=== PATIENT | male | born 1935 | race Caucasian/White ===

== ENCOUNTER 2019-10-04 08:10 | Outpatient (CLI) | payer MEDICARE, SELFPAY ==
[2019-10-04 13:16] LABS: Alanine Aminotransferase 22 U/L (4-50); Alkaline Phosphatase 75 U/L (38-126); Aspartate Amino Transferase 26 U/L (17-59); Bilirubin,Total 0.4 mg/dL (0.2-1.3); Blood Urea Nitrogen 19 mg/dL (9-20); Calcium 9.1 mg/dL (8.4-10.2); Carbon Dioxide 29 mmol/L (22-30); Chloride 105 mmol/L (98-107); Cholesterol 196 mg/dL (0-200); Estimated Glomerular Filt Rate > 60; Glucose 99 mg/dL (75-110); HDL Direct 78 mg/dL; Potassium 4.1 mmol/L (3.4-5.0); Sodium 141 mmol/L (137-145); Triglycerides 120 mg/dL (<150)
[2019-10-04 13:27] LABS: LDL Cholesterol Direct 104 mg/dL
[2019-10-04 13:32] LABS: Vitamin D 25 Hydroxy 40.8 ng/mL
== END 2019-10-04 08:11 | disposition home or self-care (01) ==
LOC: ANHWCLAB 08:19
PROVIDERS: PCP Internal Medicine; Visit Provider Internal Medicine
DX: E55.9 Vitamin D deficiency, unspecified (principal); E78.5 Hyperlipidemia, unspecified; I10 Essential (primary) hypertension; Z51.81 Encounter for therapeutic drug level monitoring
CPT/HCPCS: 36415; 80053; 80061; 82306

== ENCOUNTER 2020-08-04 09:21 | Outpatient (RCR) | payer MEDICARE, SELFPAY | END 2020-08-04 23:59 | disposition home or self-care (01) | LOC: ANHAUDIO 09:21 | PROVIDERS: PCP Internal Medicine; Visit Provider Internal Medicine | DX: Z46.1 Encounter for fitting and adjustment of hearing aid (principal) | CPT/HCPCS: 92592 ==

== ENCOUNTER 2020-08-16 07:14 | Outpatient (CLI) | payer MEDICARE, SELFPAY ==
[2020-08-16 07:53] LABS: Alanine Aminotransferase 24 U/L (4-50); Albumin Level 3.8 g/dL (3.5-5.1); Alkaline Phosphatase 68 U/L (38-126); Anion Gap 4 mmol/L (8-16); Aspartate Amino Transferase 27 U/L (17-59); Bilirubin,Total 0.5 mg/dL (0.2-1.3); Blood Urea Nitrogen 17 mg/dL (9-20); Calcium 8.9 mg/dL (8.4-10.2); Carbon Dioxide 30 mmol/L (22-30); Chloride 107 mmol/L (98-107); Cholesterol 180 mg/dL (0-200); Estimated Glomerular Filt Rate > 60; Glucose 97 mg/dL (75-110); HDL Direct 58 mg/dL; Sodium 141 mmol/L (137-145); Triglycerides 156 mg/dL (<150)
[2020-08-16 08:04] LABS: LDL Cholesterol Direct 89 mg/dL
== END 2020-08-16 07:15 | disposition home or self-care (01) ==
PROVIDERS: Family Provider Internal Medicine; PCP Internal Medicine; Visit Provider Internal Medicine
DX: I10 Essential (primary) hypertension (principal); Z79.899 Other long term (current) drug therapy; E78.5 Hyperlipidemia, unspecified
CPT/HCPCS: 36415; 80053; 80061

== ENCOUNTER 2020-08-30 10:34 | Outpatient (CLI) | payer MEDICARE, SELFPAY ==
--- NOTE | ~2020-08-30 | US_ITS ---
EXAMINATION: US carotid duplex BI DATE: 08/30/2020 11:17 INDICATION: Unspecified visual disturbance. TECHNIQUE: Grayscale, color Doppler, and pulsed Doppler images of the cervical carotid arteries were obtained. The degree of vessel stenosis is placed in one of the following categories: normal, <50%, 5 0-69%, >=70% but less than near-occlusion, near-occlusion, or total occlusion. Note that percent sten osis relative to normal distal artery lumen diameter is indirectly measured from velocity measurement s as described by Gianni, et al. Radiology 2003; 229:340-346. COMPARISON: None. FINDINGS: RIGHT: The right common carotid artery (CCA) peak systolic velocity (PSV) is 133 cm/s. The right internal ca rotid artery (ICA) PSV is 111 cm/s. The right ICA end-diastolic velocity (EDV) is 24 cm/s. The right ICA/CCA PSV ratio is 0.8. Grayscale and color Doppler images yield an estimate of <50% diameter reduc tion from plaque in the ICA. There is antegrade flow in the right vertebral artery. LEFT: The left CCA PSV is 114 cm/s. The left ICA PSV is 147 cm/s. The left ICA EDV is 25 cm/s. The left ICA /CCA PSV ratio is 1.3. Grayscale and color Doppler images yield an estimate of <50% diameter reductio n from plaque in the ICA. There is antegrade flow in the left vertebral artery. IMPRESSION: 1. <50% stenosis in the right internal carotid artery. 2. <50% stenosis in the left internal carotid artery. Reviewed, dictated and finalized at location A. S SUPPORT ADVISOR
== END 2020-08-30 10:35 | disposition home or self-care (01) ==
PROVIDERS: Family Provider Internal Medicine; PCP Internal Medicine; Visit Provider Nurse Practitioner
DX: H53.9 Unspecified visual disturbance (principal); I65.23 Occlusion and stenosis of bilateral carotid arteries
CPT/HCPCS: 93880

== ENCOUNTER 2020-12-21 09:12 | Outpatient (CLI) | payer MEDICARE, SELFPAY ==
--- NOTE | ~2020-12-21 | XR_ITS ---
EXAMINATION: XR shoulder RT min 2V DATE: 12/21/2020 09:34 INDICATION: Right shoulder pain and limited range of motion. TECHNIQUE: AP internally and externally rotated, AP oblique externally rotated and axillary views of the right shoulder were obtained. COMPARISON: None FINDINGS: Normal alignment. No fracture. Moderate acromioclavicular and glenohumeral osteoarthritis. Mild cyst ic and hypertrophic change at the greater tuberosity which can be seen with chronic rotator cuff dise ase. Soft tissues are unremarkable. The visualized portions of the right lung are clear. 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 Reviewed, dictated and finalized at location A.
== END 2020-12-21 09:13 | disposition home or self-care (01) ==
LOC: ANHIMG 09:20
PROVIDERS: PCP Internal Medicine; Visit Provider Internal Medicine
DX: M19.011 Primary osteoarthritis, right shoulder (principal)
CPT/HCPCS: 73030

== ENCOUNTER 2021-01-24 10:00 | Outpatient (RCR) | payer MEDICARE, SELFPAY ==
[2021-01-08 13:35] VITALS: BP_SYST 150
--- NOTE | 2021-01-08 14:29 | PTOPEVAL ---
PHYSICAL THERAPY EVALUATION AND PLAN OF CARE 01-08-21 Thank you for referring Williams Aparicio to [facility] for the diagnosis of R shoulder pain. He is scheduled for PT treatment 2x/wk for 3 weeks. Please review, sign, date and return this plan of care SOCRATES. I agree with and certify that the following plan of care is medically necessary. Referring Physician Date Attending Provider: Adalberto Luque, Document 01/08/21 13:35 EUGENIA (Rec: 01/08/21 14:29 EUGENIA [id number]) Assessment Status Evaluation Outpatient Past Medical History Past Medical History Source of Past Medical History Patient Neurological History Hx Neurological Disorders No Significant History Cardiovascular History Hx Hypercholesterolemia Yes: meds Hx Hypertension Yes: meds Respiratory History Hx Respiratory Disorders No Significant History Gastrointestinal History Hx Gastrointestinal Disorders No Significant History Genitourinary History Hx Genitourinary Disorders No Significant History Musculoskeletal History Hx Arthritis Yes: B hands and cramps in legs; Hx Back Pain Yes: chronic back pain-had pain management dr- injections Hx Orthopedic Surgery Yes: rotator cuff repairs R in 1998 and L in 2005;B carpal tunnel surgery Hx Other Musculoskeletal Disorders Yes: B TKR; R wrist ORIF; trigger finger release R; neck pain-chronic Endocrine History Hx Endocrine Disorders No Significant History HEENT History Hx Sinus Problems Yes: sinus surgery Hx Other HEENT Disorders Yes: [place]- have hearing aides- not have on today Psychosocial History Hx Depression Yes: med Other History Hx Other Medical Conditions Yes: had COVID vaccine Evaluation Information Problem Diagnosis R shoulder pain Onset Jul 2020 Subjective Information no injury to shoulder, gradual Query Text:As Reported By Patient/ problems with pain and could Family not lie on his R side; Diagnostic Tests X-Rays For This Problem Yes: moderate GH and A-C osteoarthritis Previous Treatments Previous Treatments For This Problem no PT for shoulder Prior Level of Function Activity Level (Last 3 Months) 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
--- NOTE | 2021-01-08 14:50 | PCPTNOTE ---
after discussion with pt, and his consent: requested fax to for OT order for eval and treatment of R and L hand arthritis and pain.
--- NOTE | 2021-01-24 10:52 | OTOPEVAL ---
OCCUPATIONAL THERAPY EVALUATION NOTE AND DISCHARGE SUMMARY 01/24/21 Patient presents today with dx of arthritis with bilateral hand pain with a decline in functional hand use due to pain and stiffness. Discussed at length the diagnosis of arthritis, joint protection, activity modification, and the importance of maintaining ROM. The patient verbalizes good understanding of all the discussed materials. He does not wish to continue to follow up with OT at this time. Discussed the benefits of follow up treatment with use of paraffin, exercise, and continued education, however the patient continued to decline need to follow up. Discharging with patient independent with all materials. Thank you for referring Williams Aparicio to [facility].?Please review, sign, date and return this D/C Note SOCRATES. I agree with and certify that the following plan of care is medically necessary. Referring Physician Date Referring Provider: Adalberto Luque DO *OT Outpatient Evaluation Start: 01/24/21 10:00 Therapy Assessment Status Assessment Status Assessment Status Evaluation Outpatient Past Medical History Past Medical History Source of Past Medical History Patient Neurological History Hx Neurological Disorders No Significant History Cardiovascular History Hx Hypercholesterolemia Yes: meds Hx Hypertension Yes: meds Respiratory History Hx Respiratory Disorders No Significant History Gastrointestinal History Hx Gastrointestinal Disorders No Significant History Genitourinary History Hx Genitourinary Disorders No Significant History Musculoskeletal History Hx Arthritis Yes: B hands and cramps in legs; Hx Back Pain Yes: chronic back pain-had pain management dr- injections Hx Orthopedic Surgery Yes: rotator cuff repairs R in 1998 and L in 2005;B carpal tunnel surgery Hx Other Musculoskeletal Disorders Yes: B TKR; R wrist ORIF; trigger finger release R; neck pain-chronic Endocrine History Hx Endocrine Disorders No Significant History HEENT History Hx Sinus Problems Yes: sinus surgery Hx Other HEENT Disorders Yes: [place]- have hearing aides- not have on today Psychosocial History Hx Depression Yes: med Other History Hx Other Medical Conditions Yes: had COVID vaccine Evaluation Information Problem Diagnosis Bilateral hand arthritis Subjective Information Patient reports the pain is Query Text:As Reported By Patient/ the worst in his thumbs. He Family also notes having some intermittent tingling in the left hand, reporting that he may have to have CT release surgery again. Pain in the hands also is int
--- NOTE | 2021-01-30 15:35 | PCPTNOTE ---
pt did not show for today's reeval; called him, he had wrong date for appt;
--- NOTE | 2021-01-30 15:35 | PCPTNOTE ---
PHYSICAL THERAPY DISCHARGE 01-30-21 Attending Provider: Adalberto Luque DO Patient:Williams Aparicio Date of :1935 Mr. Aparicio did not show for today's reevaluation, I called him and he had the wrong date for the appointment. On the phone, discussed his status with him. Obey reports his shoulder is about the same, made a few gains, but not really any better. He did not want any additional therapy at this time, therefore he will be discharged from PT services. The goals were not addressed. He received 5 PT sessions for the diagnosis of R shoulder pain. He was educated on home exercises and correct posture of his shoulder. Thank you for referring Mr. Aparicio to [facility]. Please review, sign, date and return this discharge summary SOCRATES. I have been updated about the patient's current status and I agree with discharge from the above service at this time. Referring Physician Date
== END 2021-01-31 13:03 | disposition home or self-care (01) ==
LOC: ANHOT 10:00
PROVIDERS: PCP Internal Medicine; Visit Provider Internal Medicine
DX: M25.511 Pain in right shoulder (principal); G89.29 Other chronic pain
CPT/HCPCS: 97014; 97110; 97140; 97161; 97165; 97530; G0283

== ENCOUNTER 2021-02-09 06:32 | Outpatient (CLI) | payer MEDICARE, SELFPAY ==
[2021-02-09 08:03] LABS: Alanine Aminotransferase 22 U/L (4-50); Albumin Level 4.2 g/dL (3.5-5.1); Alkaline Phosphatase 70 U/L (38-126); Anion Gap 6 mmol/L (8-16); Aspartate Amino Transferase 26 U/L (17-59); Bilirubin,Total 0.6 mg/dL (0.2-1.3); Blood Urea Nitrogen 17 mg/dL (9-20); Calcium 9.2 mg/dL (8.4-10.2); Carbon Dioxide 28 mmol/L (22-30); Chloride 108 mmol/L (98-107); Cholesterol 201 mg/dL (0-200); Estimated Glomerular Filt Rate > 60; Glucose 94 mg/dL (75-110); HDL Direct 71 mg/dL; Potassium 3.9 mmol/L (3.4-5.0); Sodium 142 mmol/L (137-145); Triglycerides 148 mg/dL (<150)
[2021-02-09 08:15] LABS: LDL Cholesterol Direct 89 mg/dL
[2021-02-09 08:41] LABS: Vitamin D 25 Hydroxy 30.5 ng/mL
== END 2021-02-09 06:33 | disposition home or self-care (01) ==
LOC: ANHLAB 06:35
PROVIDERS: PCP Internal Medicine; Visit Provider Nurse Practitioner
DX: E78.5 Hyperlipidemia, unspecified (principal); E55.9 Vitamin D deficiency, unspecified
CPT/HCPCS: 36415; 80053; 80061; 82306

== ENCOUNTER → 2021-03-16 03:40 | Outpatient (CLI) | payer MEDICARE, SELFPAY ==
[2021-03-16 20:12] LABS: SARS-CoV-2 RNA PCR Negative
== END ==
PROVIDERS: PCP Internal Medicine; Visit Provider Internal Medicine
DX: R68.89 Other general symptoms and signs (principal); Z20.822 Contact with and (suspected) exposure to COVID-19
CPT/HCPCS: C9803; U0003; U0005

== ENCOUNTER 2021-04-20 14:21 | Emergency (ER) | payer MEDICARE, SELFPAY ==
--- NOTE | ~2021-04-20 | XR_ITS ---
[XR ribs RT 2V ] INDICATION: Right rib pain after fall TECHNIQUE: Frontal projection of the upper right ribs, frontal projection of the lower right ribs, ob lique projection of all the right ribs, frontal inspiratory chest x-ray for interpretation. FINDINGS: There are no displaced rib fractures identified. There are no soft tissue abnormality see n. The lungs are clear. There are calcifications of the right diaphragm, likely from previous asbes tos exposure. Small right pleural effusion is pleural thickening. Right basilar atelectasis. There is polyarticular osteoarthritis of the right shoulder. IMPRESSION: 1:No acute displaced rib fractures. 2:Small right pleural effusion versus pleural thickening. Pleural calcifications, consistent with pre vious asbestos exposure. Reviewed, dictated and finalized at location A. IMPRESSION: 1:No acute displaced rib fractures. 2:Small right pleural effusion versus pleural thickening. Pleural calcification s, consistent with previous asbestos exposure.
--- NOTE | ~2021-04-20 | CT_ITS ---
EXAMINATION: CT cervical spine wo con EXAM DATE: 04/20/2021 16:16 INDICATION: Ground level fall. Head injury.. TECHNIQUE: Spiral CT of the cervical spine was performed without contrast. Axial images were reviewe d. Coronal and sagittal reformatted images cervical spine were also reviewed. The dose-length produc t (DLP) for this examination was 366.78 mGy-cm. The exposure was tailored according to patient size (auto mA exposure control), and iterative reconstruction (ASIR) was used as additional dose reduction technique. There is no prior study for comparison. FINDINGS: There is no evidence of acute cervical fracture. The odontoid process is intact. Pre-dens space is normal. Prevertebral soft tissue is normal. There are no soft tissue abnormalities identi fied. There is no disc space widening or traumatic vertebral body subluxation suspected. There is a dvanced cervical spondylosis with severe right neural foraminal stenosis at C4-5. A detailed level b y level evaluation of spondylosis can be added as addendum if requested. IMPRESSION: 1. No acute cervical fracture. 2. Advanced spondylosis. Reviewed, dictated and finalized at location B.
--- NOTE | ~2021-04-20 | XR_ITS ---
EXAMINATION: XR wrist RT min 3V DATE: 04/20/2021 16:24 INDICATION: Ground-level fall with right wrist pain TECHNIQUE: Posteroanterior, ulnar deviation, oblique, and lateral views of the right wrist were obtai abiola. COMPARISON: none FINDINGS: No evident traumatic malalignment or acute fracture. Postoperative changes in the right wrist includi ng carpal arthrodesis involving the capitate, hamate, lunate and triquetrum. The scaphoid has been re sected with small residual bone fragment in the region of the distal pole. Region of lucency at the r adial side of the distal radius likely representing a bone graft harvest site. Irregular cortical con tour at the articular surface of the scaphoid fossa likely related to chronic osteoarthritis. Additio nal mild to moderate osteoarthritic changes most prominent at the second and fifth metacarpophalangea l and first interphalangeal joints and to lesser degree at the distal radioulnar, first carpometacarp al and remaining metacarpophalangeal joints. IMPRESSION: 1. Chronic postoperative changes at the right carpus. No acute osseous abnormality. 2. Mild to moderate polyarticular osteoarthritis at the right hand and wrist. Reviewed, dictated and finalized at location A. IMPRESSION: 1. Chronic postoperative changes at the right carpus. No acute osseous abnormal ity. 2. Mild to moderate polyarticular osteoarthritis at the right hand and wrist.
--- NOTE | ~2021-04-20 | CT_ITS ---
EXAMINATION: CT BRAIN W/O DATE: 04/20/2021 16:16 INDICATION: Ground level fall TECHNIQUE: Computed tomography (CT) of the head was performed without intravenous contrast. The dose- length product was 605.33 mGy-cm. Automated exposure control and iterative reconstruction technique w ere employed. COMPARISON: No prior studies for comparison. FINDINGS: Normal brain parenchymal volume for age. Normal ty-white differentiation. No acute intrac ranial hemorrhage, infarction, mass or mass effect. 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 Th ere are scattered mild periventricular and subcortical white matter changes, most likely related to s mall vessel ischemic disease (microangiopathy). There is intracranial atherosclerosis. No ventriculomegaly or midline shift. Midline sagittal images demonstrate a normal corpus callosum, c raniovertebral junction and sella turcica. Basilar cisterns are patent. Paranasal sinuses and mastoids are pneumatized. No depressed skull fractures. IMPRESSION: 1. No acute intracranial abnormality. 2: Chronic left cerebellar infarction. Reviewed, dictated and finalized at location A.
[2021-04-20 15:05] VITALS: BP 142/69; PULSE 62; RESP 16; TEMP 36.7; O2SAT 97
[2021-04-20 16:46] VITALS: BP 146/65; PULSE 63; RESP 18; O2SAT 96
--- NOTE | 2021-04-20 16:57 | ED.FALL ---
HPI - Fall General Chief Complaint: Fall Stated Complaint: fall Time Seen by Provider: 04/20/21 15:58 History of Present Illness HPI Narrative: Patient presents after a ground-level fall. Patient ports he was walking outside [employer] when he tripped on uneven concrete striking his right wrist and head. He was initially evaluated by EMS declined transport and went home. He noted increasing pain in his chest where he struck the ground saline to come to the ER for evaluation his pain is primarily on his right chest reports mild pain on his right wrist declines having a headache. Denies any focal numbness or weakness. His pain in his chest is achy, constant, worse with deep inspiration, no radiation. Related Data Home Medications Medication Instructions Recorded Confirmed fluticasone propionate 50 2 spray NASAL DAILY 10/12/19 02/28/21 mcg/actuation nasal spray,suspension acetaminophen 500 mg tablet 500 mg PO Q4-6H PRN tablet 08/23/20 02/28/21 multivitamin 1 tablet PO DAILY 08/23/20 02/28/21 Allergies Allergy/AdvReac Type Severity Reaction Status Date / Time betamethasone AdvReac Intermediate Skin Uncoded 04/20/21 16:49 reactions Review of Systems Review of Systems: CONSTITUTIONAL: Denies fever, chills, or sweats. EYES: Denies visual changes, redness, or discharge. ENT: Denies rhinorrhea, congestion, sore throat, or otalgia. CARDIOVASCULAR: Denies palpitations, or edema. RESPIRATORY: Denies cough or dyspnea. GASTROINTESTINAL: Denies abdominal pain, nausea, vomiting, or diarrhea. GENITOURINARY: Denies dysuria or hematuria. SKIN: Denies rash or itching. MUSCULOSKELETAL: Denies back pain,or myalgia. NEUROLOGIC: Denies headache, numbness, dizziness, or weakness. PSYCHIATRIC: Denies anxiety or depression. 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 HEAD: Normocephalic, superficial laceration approximate 1.5 cm above the right orbit no active bleeding no focal bony tenderness EYES: PERRLA and EOMI. ENT: Nares clear, no rhinorrhea or epistaxis. Mucous membranes moist. NECK: Supple. No masses. No JVD CHEST: Clear to auscultation. No respiratory distress. No wheezes rales or rhonchi HEART: Regular rate and rhythm. No murmur heard. Normal peripheral pulses. ABDOMEN: Soft, nontender, nondistended EXTREMITIES: Normal range of motion. Skin tear on the right wrist with mild diffuse tenderness no focal bony tenderness no snuffbox tenderness no obvious deformity SKIN: Warm, dry, no rash. NEURO: Cranial nerves II through XII are intact, 5 out of 5 strength in all extremities with sensation intact to light touch alert and oriented x3. PSYCH: Normal mood and affect. Course Reevaluation(s) Reevaluation #1: Patient resting comfortably imaging reviewed with patient. Patient comfortable with the outpatient plan. Date: 04/20/21 Time: 17:04 Vital Signs Vital signs: Vital Signs Temperature 36.7 C 04/20/21 15:05 Pulse Rate 62 04/20/21 15:05 Respiratory Rate
[2021-04-20] MEDS: TETANUS,DIPHTHERIA,AC PERTUSSIS ADULT (0.5 ML) BOOSTRIX IM (17:46)
== END 2021-04-20 18:10 | disposition home or self-care (01) ==
PROVIDERS: Emergency Provider Emergency Medicine; PCP Internal Medicine
DX: S01.111A Laceration without foreign body of right eyelid and periocular area, initial encounter (principal); S60.811A Abrasion of right wrist, initial encounter; S50.311A Abrasion of right elbow, initial encounter; S09.90XA Unspecified injury of head, initial encounter; Z23 Encounter for immunization; E78.00 Pure hypercholesterolemia, unspecified; I10 Essential (primary) hypertension; F32.9 Major depressive disorder, single episode, unspecified; R91.8 Other nonspecific abnormal finding of lung field; M47.812 Spondylosis without myelopathy or radiculopathy, cervical region; M19.041 Primary osteoarthritis, right hand; M19.031 Primary osteoarthritis, right wrist; W18.09XA Striking against other object with subsequent fall, initial encounter
CPT/HCPCS: 12001; 12011; 70450; 71100; 72125; 73110; 90471; 90715; 99284

== ENCOUNTER 2021-09-04 08:31 | Outpatient (CLI) | payer MEDICARE, SELFPAY ==
[2021-09-04 15:17] LABS: Alanine Aminotransferase 18 U/L (4-50); Albumin Level 4.2 g/dL (3.5-5.1); Alkaline Phosphatase 80 U/L (38-126); Anion Gap 9 mmol/L (8-16); Aspartate Amino Transferase 46 U/L (17-59); Bilirubin,Total 0.5 mg/dL (0.2-1.3); Blood Urea Nitrogen 17 mg/dL (9-20); Calcium 9.5 mg/dL (8.4-10.2); Carbon Dioxide 27 mmol/L (22-30); Chloride 105 mmol/L (98-107); Cholesterol 206 mg/dL (0-200); Estimated Glomerular Filt Rate > 60; Glucose 96 mg/dL (65-110); HDL Direct 68 mg/dL; Potassium 4.1 mmol/L (3.4-5.0); Sodium 141 mmol/L (137-145); Triglycerides 109 mg/dL (<150)
[2021-09-04 15:28] LABS: LDL Cholesterol Direct 94 mg/dL
[2021-09-04 15:32] LABS: Vitamin D 25 Hydroxy 32.8 ng/mL
== END 2021-09-04 08:32 | disposition home or self-care (01) ==
LOC: ANHWCLAB 08:36
PROVIDERS: PCP Internal Medicine; Referring Provider Internal Medicine; Visit Provider Internal Medicine
DX: E78.5 Hyperlipidemia, unspecified (principal); Z51.81 Encounter for therapeutic drug level monitoring; E55.9 Vitamin D deficiency, unspecified; Z79.899 Other long term (current) drug therapy
CPT/HCPCS: 36415; 80053; 80061; 82306

== ENCOUNTER 2021-12-07 12:30 | Outpatient (RCR) | payer MEDICARE, SELFPAY ==
--- NOTE | 2021-10-09 14:43 | PTOPEVAL ---
Thank you for referring Williams Aparicio to [facility].? The patient is scheduled to be seen for therapy? 2 x/week for 10 weeks. Please review, sign, date and return this plan of care SOCRATES. I agree with and certify that the following plan of care is medically necessary. Referring Physician Date Referring Provider: Dr. 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 He is only performing wrist and elbow motions and mild shoulder flex. Pain Assessment Right Shoulder(s) Reported Pain Level 0 Pain Description Aching Pain Frequency Acute Lowest Pain Intensity 0 Greatest Pain Intensity 6 Pain Aggravating Factors ADL's,Exercise/Activity, Lifting Upper Extremity Range of Motion Scapular/ Shoulder Range of Motion Right Reason Not Measured Surgery Precautions Shoulder Flexion - Active 70 Shoulder Flexion - Passive 90 Shoulder Lateral Rotation - Active 0 Shoulder Lateral Rotation - Passive 18 Scapular/Shoulder Range of Motion Muscle Weakness,Pain,Soft Limitations Tissue Restriction Scapular/Shoulder Range of Motion lateral rotation with UE at Comments side Elbow/Forearm Range of Motion Right Elbow Flexion - Active 130 Elbow Extension - Active -18 Upper Extremity Muscle Strength Testing General Upper Extremity Strength Gross Upper Extremity Strength 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
[2021-11-08 10:56] VITALS: BP_SYST 103
--- NOTE | 2021-11-12 10:50 | PCPTNOTE ---
Patient did not show up for scheduled appointment this date. Called and spoke with Pt. He did not have this appointment on his calendar and apologized for missing it. Reminded Pt of upcoming appointment on 11/15/21 @ 14:30. This is Pt's first N/S.
--- NOTE | 2021-12-07 17:05 | PCPTNOTE ---
Admitting Provider: Attending Provider: Dr. Gerardo Elizabeth Patient:Williams Aparicio Date of :1935 Physical Therapy Discharge Summary Patient has been seen for 16 therapy visits to address his shoulder limitations following his surgery. As a result of skilled therapy services he is able to preform his daily task with only minimal limitations. He demonstrates improved shoulder strength and range and pain. -right shoulder ext rotation 60 dg and int rotation 40dg with arm at 90 dg abduction. -shoulder flex: 110 dg, abd 110 dg. 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 He has met or partially met his therapy goals at this time. Will DC skilled PT services per doctor recommendations. Thank you for referring this patient to [facility]. Please review, sign, date and return this discharge summary SOCRATES. I have been updated about the patient's current status and I agree with discharge from the above service at this time. Referring Physician Date
== END 2021-12-10 10:35 | disposition home or self-care (01) ==
LOC: ANHPT 12:30
PROVIDERS: PCP Internal Medicine
DX: M75.121 Complete rotator cuff tear or rupture of right shoulder, not specified as traumatic (principal)
CPT/HCPCS: 97110; 97112; 97140; 97162; 97530

== ENCOUNTER 2021-12-13 18:35 | Emergency (ER) | payer MEDICARE, SELFPAY ==
--- NOTE | ~2021-12-13 | CT_ITS ---
EXAMINATION: CT cervical spine wo con DATE: 12/13/2021 19:27 INDICATION: Neck injury. TECHNIQUE: Computed tomography (CT) of the cervical spine was performed without intravenous contrast. Automated exposure control and iterative reconstruction technique were employed. The dose-length pro duct was 489.44 mGy-cm. COMPARISON: CT cervical spine 04/20/2021 FINDINGS: There is a 2.4 cm nodule in the left thyroid lobe, that likely needs no further evaluation given the patient's age. There is mild scarring at the lung apices. There is 11 degrees levoscoliosis of cervicothoracic spine. There is 2 mm anterolisthesis of C7 on T1. Vertebral body heights are norm al. There is mildly decreased disc at C3-C4 and severely decreased disc height from C4-C5 through C6- C7. The following disc levels are specifically discussed: C2-C3: There is mild bilateral uncovertebral joint osteoarthritis. There is mild right and severe lef t facet joint osteoarthritis. There is mild left neural foraminal stenosis. There is mild central can al stenosis. C3-C4: There is severe right and mild left uncovertebral joint osteoarthritis. There is severe bilate ral facet joint osteoarthritis. There is moderate right and mild left neural foraminal stenosis. Ther e is mild central canal stenosis. C4-C5: There is severe right and mild left uncovertebral joint osteoarthritis. There is severe bilate ral facet joint osteoarthritis. There is moderate right and mild left neural foraminal stenosis. Ther e is mild central canal stenosis. C5-C6: There is severe bilateral uncovertebral joint osteoarthritis. There is mild bilateral facet nia int osteoarthritis. There is moderate bilateral neural foraminal stenosis. There is mild central jia l stenosis. C6-C7: There is severe bilateral uncovertebral joint osteoarthritis. There is moderate bilateral face t joint osteoarthritis. There is mild bilateral neural foraminal stenosis. There is mild central jia l stenosis. C7-T1: There is no uncovertebral joint osteoarthritis. There is severe bilateral facet joint osteoart hritis. There is mild bilateral neural foraminal stenosis. There is no central canal stenosis. IMPRESSION: 1. No fracture. 2. Severe cervical spondylosis. Reviewed, dictated and finalized at location A.
--- NOTE | ~2021-12-13 | XR_ITS ---
EXAMINATION: XR shoulder LT min 2V DATE: 12/13/2021 19:15 INDICATION: Left humeral head pain. Fall. TECHNIQUE: 4 views of left shoulder were obtained. COMPARISON: None. FINDINGS: Bone alignment is normal. No acute fracture. There is an old healed fracture of left third rib. There is mild osteoarthritis of glenohumeral joint and acromioclavicular joint. IMPRESSION: 1. Polyarticular osteoarthritis. Reviewed, dictated and finalized at location A.
--- NOTE | ~2021-12-13 | CT_ITS ---
EXAMINATION: CT brain wo con DATE: 12/13/2021 19:27 INDICATION: Ground-level fall. TECHNIQUE: Computed tomography (CT) of the head was performed without intravenous contrast. The mA wa s adjusted according to patient size. Iterative reconstruction technique was employed. The dose-lengt h product was 605.33 mGy-cm. COMPARISON: Head CT 04/20/2021 FINDINGS: There is an old infarct in left cerebellum. There is an old infarct in left frontal lobe. T here is no intracranial hemorrhage, acute infarction, or abnormal intracranial mass lesion. The ventr icles are normal in size. There are likely changes of ocular lens replacement surgeries. There is mil d mucosal thickening in the paranasal sinuses. There are changes of ethmoidectomies. The mastoid air cells are normal. IMPRESSION: 1. Old infarcts in left frontal lobe and left cerebellum. Reviewed, dictated and finalized at location A.
--- NOTE | ~2021-12-13 | XR_ITS ---
EXAMINATION: XR hand RT 2V DATE: 12/13/2021 19:15 INDICATION: Right hand injury. TECHNIQUE: 2 views of right hand were obtained. COMPARISON: Right wrist radiographs 04/20/2021 FINDINGS: There is a small bone fragment in the expected area of scaphoid, which may have been resect ed. There is ankylosis of capitate, hamate, lunate, and triquetrum. No fracture. There is mild osteoa rthritis of first carpometacarpal joint. There is mild to moderate osteoarthritis of many of the meta carpophalangeal joints and interphalangeal joints. There is severe osteoarthritis of fifth distal int erphalangeal joint. IMPRESSION: 1. No fracture. 2. Polyarticular osteoarthritis. 3. Four-corner arthrodesis of the carpus. Reviewed, dictated and finalized at location A.
[2021-12-13 18:38] VITALS: BP 164/71; PULSE 71; RESP 16; TEMP 36.9; O2SAT 98
--- NOTE | 2021-12-13 18:52 | ED.FALL ---
HPI - Fall General Chief Complaint: Fall <Dinh Craig MD - Last Filed: 12/13/21 21:50> Stated Complaint: HEAD LAC <Dinh Craig MD - Last Filed: 12/13/21 21:50> Time Seen by Provider: 12/13/21 18:45 <Dinh Craig MD - Last Filed: 12/13/21 21:50> Source: patient <Dinh Craig MD - Last Filed: 12/13/21 21:50> History of Present Illness HPI Narrative: Patient presents after a fall. Patient reports he was walking outside putting on his garbage can when the wheel slipped away he lost his toy electric train repairer and fell forward landing on his left shoulder and striking his head. Denies any loss of conscious denies any focal numbness or weakness. He presented to an urgent care was referred to the ER for further evaluation. Reports mild soreness to his head he also reports diffuse pain to his left shoulder and right hand. Pain is achy, constant, no radiation, worse with moving the extremity. He denies any prodrome prior to the fall such as chest pain, lightheadedness, shortness of breath, dizziness. Denies any recent fevers, cough, congestion. <Dinh Craig MD - Last Filed: 12/13/21 21:50> Related Data Home Medications: Home Medications Medication Instructions Recorded Confirmed fluticasone propionate 50 2 spray NASAL DAILY 10/12/19 09/06/21 mcg/actuation nasal spray,suspension acetaminophen 500 mg tablet 500 mg PO Q4-6H PRN tablet 08/23/20 09/06/21 multivitamin 1 tablet PO DAILY 08/23/20 09/06/21 <Dinh Craig MD - Last Filed: 12/13/21 21:50> Allergies/Adverse Reactions: Allergies Allergy/AdvReac Type Severity Reaction Status Date / Time betamethasone AdvReac Intermediate Skin Uncoded 12/13/21 18:50 reactions <Dinh Craig MD - Last Filed: 12/13/21 21:50> Review of Systems Review of Systems: CONSTITUTIONAL: Denies fever, chills, or sweats. EYES: Denies visual changes, redness, or discharge. ENT: Denies rhinorrhea, congestion, sore throat, or otalgia. CARDIOVASCULAR: Denies chest pain, palpitations, or edema. RESPIRATORY: Denies cough or dyspnea. GASTROINTESTINAL: Denies abdominal pain, nausea, vomiting, or diarrhea. GENITOURINARY: Denies dysuria or hematuria. SKIN: Denies rash or itching. MUSCULOSKELETAL: Denies back pain, or myalgia. NEUROLOGIC: Denies numbness, dizziness, or weakness. PSYCHIATRIC: Denies anxiety or depression. 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) Radicular pain Seasonal allergic rhinitis <Dinh Craig MD - Last Filed: 12/13/21 21:50> Surgical History Surgical History: Surgical History History of orthopedic surgery <Dinh Craig MD - Last Filed: 12/13/21 21:50> Family History Family History: Family History Father Family history of malignant neoplasm, Onset Age: 55 Mother Family history of Alzheimer's disease, Onset Age: 88 <Dinh Craig MD - Last Filed: 12/13/21 21:50> Social History Social History: Social History Smoking packs per day: 0.5 Smoking cigarettes per day: 10.0 Years smoked: 17 Smoking pack-years: 8.50 Smoking end date: 07/28/1967 Alcohol intake: current Alcohol use details: social Substance use: never Substance use type: does not use Gender identity (if verbalized by the patien
[2021-12-13 19:03] LABS: Basophils Absolute Auto 0.1 K/mm3 (0.0-0.1); Basophils Percent Auto 0.6 % (0.2-1.2); Eosinophils Absolute Auto 0.1 K/mm3 (0-0.3); Eosinophils Percent Auto 1.4 % (0-4.4); Hematocrit 40.8 % (42.0-52.0); Hemoglobin 12.9 g/dL (14.0-18.0); Immature Granulocyte Absolute 0.03 K/mm3 (0.00-0.031); Immature Granulocyte Percent A 0.4 % (0-0.5); Lymphocytes Absolute Auto 1.58 K/mm3 (0.9-3.2); Lymphocytes Percent Auto 19.5 % (18.3-44.2); Mean Corpuscular HGB Conc 31.6 g/dl (32-36); Mean Corpuscular Hemoglobin 28.3 pg (26-34); Mean Corpuscular Volume 89.5 fl (80-100); Mean Platelet Volume 9.6 fl (7.4-10.4); Monocytes Absolute Auto 0.5 K/mm3 (0.1-0.6); Monocytes Percent Auto 5.9 % (2.6-8.5); Neutrophils Absolute Auto 5.9 K/mm3 (1.3-6.7); Neutrophils Percent Auto 72.2 % (45.5-73.1); Platelet Count Result 215 k/mm3 (150-375); Red Blood Count 4.56 M/mm3 (4.6-6.20); Red Cell Distribution Width 13.1 % (11.5-14.5); White Blood Count 8.1 K/mm3 (4.5-10.0)
[2021-12-13 19:17] LABS: Alanine Aminotransferase 18 U/L (6-50); Albumin Level 4.1 g/dL (3.5-5.1); Alkaline Phosphatase 83 U/L (38-126); Anion Gap 10 mmol/L (8-16); Aspartate Amino Transferase 28 U/L (17-59); Bilirubin,Total 0.2 mg/dL (0.2-1.3); Blood Urea Nitrogen 17 mg/dL (9-20); Calcium 8.9 mg/dL (8.4-10.2); Carbon Dioxide 25 mmol/L (22-30); Chloride 107 mmol/L (98-107); Estimated CRCL calculation 52 ml/min; Estimated Glomerular Filt Rate > 60; Glucose 135 mg/dL (65-110); Potassium 3.8 mmol/L (3.4-5.0); Sodium 142 mmol/L (137-145)
[2021-12-13] MEDS: LIDO 1%/EPINEPHRINE 1:100,000 10 ML VIAL (19:50)
[2021-12-13 20:54] VITALS: RESP 20; O2SAT 99
== END 2021-12-13 20:55 | disposition home or self-care (01) ==
PROVIDERS: Emergency Provider Emergency Medicine; PCP Internal Medicine
DX: S01.112A Laceration without foreign body of left eyelid and periocular area, initial encounter (principal); S61.212A Laceration without foreign body of right middle finger without damage to nail, initial encounter; E78.00 Pure hypercholesterolemia, unspecified; I10 Essential (primary) hypertension; F32.4 Major depressive disorder, single episode, in partial remission; Z86.73 Personal history of transient ischemic attack (TIA), and cerebral infarction without residual deficits; Z87.891 Personal history of nicotine dependence; M47.812 Spondylosis without myelopathy or radiculopathy, cervical region; M19.012 Primary osteoarthritis, left shoulder; M18.9 Osteoarthritis of first carpometacarpal joint, unspecified; M19.041 Primary osteoarthritis, right hand; M24.631 Ankylosis, right wrist; W18.39XA Other fall on same level, initial encounter
CPT/HCPCS: 12001; 12013; 36415; 70450; 72125; 73030; 73120; 80053; 85025; 99284

== ENCOUNTER 2022-01-15 13:32 | Outpatient (CLI) | payer MEDICARE, SELFPAY ==
--- NOTE | ~2022-01-15 | CT_ITS ---
EXAMINATION:CT diagnostic chest wo con DATE: 01/15/2022 14:05 INDICATION: Lung nodule. TECHNIQUE: Computed tomography (CT) of the chest was performed without intravenous contrast. Automate d exposure control and iterative reconstruction technique were employed. The dose-length product (DLP ) was 119.48 mGy-cm. COMPARISON: CT abdomen and pelvis 11/29/2015 FINDINGS: There is mild scarring at the lung apices. There is a 9 mm groundglass opacity in right upp er lobe. Calcified bilateral lung nodules and calcified hilar and mediastinal lymph nodes are consist ent with old granulomatous disease. There are calcified pleural plaques on the right. There is periph eral septal thickening in the lungs with an inferior predominance. No pleural effusion. The heart siz e is normal. There are coronary artery calcifications. No pericardial effusion. Calcifications in the spleen are consistent with old granulomatous disease. There are bridging endplate osteophytes at mul tiple levels in the spine, consistent with diffuse idiopathic skeletal hyperostosis (DISH). There is a right shoulder arthroplasty. IMPRESSION: 1. 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 Reviewed, dictated and finalized at location A. IMPRESSION: 1. Mild chronic interstitial lung disease in a pattern of usual interstitial pn eumonia (UIP).
== END 2022-01-15 13:33 | disposition home or self-care (01) ==
PROVIDERS: PCP Internal Medicine; Visit Provider Internal Medicine
DX: R91.1 Solitary pulmonary nodule (principal); J84.9 Interstitial pulmonary disease, unspecified
CPT/HCPCS: 71250

== ENCOUNTER 2022-02-28 14:51 | Outpatient (CLI) | payer MEDICARE, SELFPAY ==
[2022-02-28 15:43] LABS: Alanine Aminotransferase 19 U/L (6-50); Albumin Level 4.2 g/dL (3.5-5.1); Alkaline Phosphatase 76 U/L (38-126); Anion Gap 11 mmol/L (8-16); Aspartate Amino Transferase 26 U/L (17-59); Bilirubin,Total 0.4 mg/dL (0.2-1.3); Blood Urea Nitrogen 16 mg/dL (9-20); Carbon Dioxide 24 mmol/L (22-30); Chloride 105 mmol/L (98-107); Cholesterol 195 mg/dL (0-200); Estimated Glomerular Filt Rate > 60; Glucose 120 mg/dL (65-110); HDL Direct 75 mg/dL; Potassium 3.7 mmol/L (3.4-5.0); Sodium 140 mmol/L (137-145); Triglycerides 288 mg/dL (<150)
[2022-02-28 15:55] LABS: LDL Cholesterol Direct 78 mg/dL
== END 2022-02-28 14:52 | disposition home or self-care (01) ==
LOC: ANHLAB 14:53
PROVIDERS: PCP Internal Medicine; Visit Provider Nurse Practitioner
DX: E78.5 Hyperlipidemia, unspecified (principal)
CPT/HCPCS: 36415; 80053; 80061

== ENCOUNTER 2022-09-09 09:00 | Outpatient (CLI) | payer MEDICARE, SELFPAY ==
[2022-09-09 09:46] LABS: Alanine Aminotransferase 21 U/L (6-50); Albumin Level 4.5 g/dL (3.5-5.1); Alkaline Phosphatase 78 U/L (38-126); Anion Gap 8 mmol/L (8-16); Aspartate Amino Transferase 26 U/L (17-59); Bilirubin,Total 0.8 mg/dL (0.2-1.3); Blood Urea Nitrogen 15 mg/dL (9-20); Carbon Dioxide 27 mmol/L (22-30); Chloride 105 mmol/L (98-107); Cholesterol 229 mg/dL (0-200); Estimated Glomerular Filt Rate > 60; Glucose 94 mg/dL (65-110); HDL Direct 85 mg/dL; Sodium 140 mmol/L (137-145); Triglycerides 115 mg/dL (<150)
[2022-09-09 09:57] LABS: LDL Cholesterol Direct 96 mg/dL
[2022-09-09 10:31] LABS: Vitamin D 25 Hydroxy 30.3 ng/mL
== END 2022-09-09 09:01 | disposition home or self-care (01) ==
PROVIDERS: PCP Internal Medicine; Visit Provider Internal Medicine
DX: Z51.81 Encounter for therapeutic drug level monitoring (principal); I10 Essential (primary) hypertension; E78.5 Hyperlipidemia, unspecified; E55.9 Vitamin D deficiency, unspecified
CPT/HCPCS: 36415; 80053; 80061; 82306

== ENCOUNTER → 2022-12-12 15:36 | Outpatient (CLI) | payer MEDICARE, SELFPAY ==
--- NOTE | ~2022-12-12 | XR_ITS ---
EXAMINATION: XR lumbar spine 2-3V, XR sacroiliac joints min 3V DATE: 12/12/2022 16:15 INDICATION: Sacrococcygeal disorder with chronic worsening low back and sacroiliac joint pain TECHNIQUE: 1. Anteroposterior and lateral views of the lumbar spine, and cone-down lateral view of the lumbosacr al junction were obtained. 2. Anteroposterior and left and right oblique views of the bilateral sacralized joints were obtained. COMPARISON: 10/29/2018 FINDINGS: Lumbar spine: 5 mm retrolisthesis L3 on L4. Normal alignment in the remainder of the lumbar spine. Vertebral body h eights are normal. Mild disc height loss at L1-L2, L2-L3 and L4-L5, moderate disc height loss at L3-L 4 and L5-S1. There is prominent bridging or nearly bridging osteophytes throughout the lumbar and vis ualized lower thoracic spine consistent with diffuse idiopathic skeletal hyperostosis (DISH). Sacroiliac joints: Bilateral sacroiliac osteoarthritis with moderate right-sided and mild left-sided joint space narrowi ng. No erosions to suggest inflammatory sacroiliitis. IMPRESSION: 1. No significant change in moderate lumbar spondylosis. 2. Mild left and moderate right sacroiliac osteoarthritis. Reviewed, dictated and finalized at location A. IMPRESSION: 1. No significant change in moderate lumbar spondylosis. 2. Mild left and moderate right sacroiliac osteoarthritis.
== END ==
PROVIDERS: PCP Nurse Practitioner Family; Visit Provider Nurse Practitioner Family
DX: M53.3 Sacrococcygeal disorders, not elsewhere classified (principal); M54.59 Other low back pain
CPT/HCPCS: 72100; 72202

== ENCOUNTER 2023-09-30 06:49 | Outpatient (CLI) | payer MEDICARE, SELFPAY ==
[2023-09-30 07:29] LABS: Hematocrit 40.3 % (42.0-52.0); Hemoglobin 13.1 g/dL (14.0-18.0); Mean Corpuscular HGB Conc 32.5 g/dl (32-36); Mean Corpuscular Hemoglobin 29.1 pg (26-34); Mean Corpuscular Volume 89.6 fl (80-100); Mean Platelet Volume 9.9 fl (7.4-10.4); Platelet Count Result 205 k/mm3 (150-375); Red Cell Distribution Width 12.4 % (11.5-14.5)
[2023-09-30 07:39] LABS: Alanine Aminotransferase 19 U/L (6-50); Albumin Level 4.1 g/dL (3.5-5.1); Alkaline Phosphatase 69 U/L (38-126); Anion Gap 4 mmol/L (8-16); Aspartate Amino Transferase 26 U/L (17-59); Bilirubin,Total 0.5 mg/dL (0.2-1.3); Blood Urea Nitrogen 22 mg/dL (9-20); Calcium 9.3 mg/dL (8.4-10.2); Carbon Dioxide 29 mmol/L (22-30); Chloride 108 mmol/L (98-107); Cholesterol 232 mg/dL (0-200); Estimated Glomerular Filt Rate > 60; Glucose 95 mg/dL (65-110); HDL Direct 67 mg/dL; Potassium 3.9 mmol/L (3.4-5.0); Sodium 141 mmol/L (137-145); Triglycerides 103 mg/dL (<150)
[2023-09-30 07:50] LABS: LDL Cholesterol Direct 132 mg/dL
[2023-09-30 08:54] LABS: Vitamin D 25 Hydroxy 22.1 ng/mL
== END 2023-09-30 06:50 | disposition home or self-care (01) ==
LOC: ANHLAB 06:52
PROVIDERS: PCP Nurse Practitioner; Visit Provider Nurse Practitioner
DX: E55.9 Vitamin D deficiency, unspecified (principal); E78.5 Hyperlipidemia, unspecified; Z79.899 Other long term (current) drug therapy
CPT/HCPCS: 36415; 80053; 80061; 82306; 85027

== ENCOUNTER 2024-04-13 08:48 | Outpatient (CLI) | payer MEDICARE, SELFPAY ==
[2024-04-13 09:58] LABS: Alanine Aminotransferase 17 U/L (6-50); Albumin Level 4.2 g/dL (3.5-5.1); Alkaline Phosphatase 70 U/L (38-126); Anion Gap 9 mmol/L (4-12); Aspartate Amino Transferase 26 U/L (17-59); Bilirubin,Total 0.5 mg/dL (0.2-1.3); Blood Urea Nitrogen 24 mg/dL (9-20); Carbon Dioxide 28 mmol/L (22-30); Chloride 101 mmol/L (98-107); Estimated Glomerular Filt Rate > 60; Glucose 96 mg/dL (65-110); Potassium 4.3 mmol/L (3.4-5.0); Sodium 138 mmol/L (137-145)
[2024-04-13 10:37] LABS: Vitamin D 25 Hydroxy 42.2 ng/mL
== END 2024-04-13 08:49 | disposition home or self-care (01) ==
LOC: ANHLAB 08:51
PROVIDERS: PCP Nurse Practitioner Family; Visit Provider Nurse Practitioner Family
DX: E55.9 Vitamin D deficiency, unspecified (principal); E78.5 Hyperlipidemia, unspecified
CPT/HCPCS: 36415; 80053; 82306

== ENCOUNTER 2024-06-22 07:04 | Observation (INO) | payer MEDICARE, SELFPAY ==
[2024-06-22] VITALS (19 sets, daily range): BP systolic 93–157; BP diastolic 46–77; PULSE 55–86; RESP 14–22; TEMP 36.4–36.9; O2SAT 88–100; BMI 25.9
--- NOTE | 2024-06-22 | ECHO_ITS ---
Patient Info Name: Williams Aparicio Age: 89 years : 1935 Gender: Male Ht: 69 in Wt: 169 lbs BSA: 1.94 m2 HR: 62 bpm BP: 128 / 74 mmHg Heart Rhythm: Sinus Rhythm Technical Quality: Fair Exam Date: 06/22/2024 3:56 PM Exam Location: Echo Lab Patient Status: Inpatient Admit Date: 06/22/2024 Staff Ordering Physician: Seun Lynch MD Senior Applications Engineer: Christine Gtz RDCS Attending Provider: Celestino Urias MD Referring Physician: Syed EDOUARD; Exam Type: CA echo doppler color flow Study Info Indications - troponin Complete two-dimensional, color flow and Doppler transthoracic echocardiogram is performed. Summary 1. Left ventricular chamber dimension is normal. 2. Left ventricular systolic function is normal, estimated at 60-65%. 3. There is mildly increased left ventricular wall thickness. 4. The left ventricular diastolic function is grade I diastolic dysfunction. 5. Right ventricular systolic function is normal. 6. Left atrial chamber dimension is mildly enlarged. 7. There is mild aortic valve regurgitation. Left Ventricle Left ventricular chamber dimension is normal. Left ventricular systolic function is normal, estimated at 60-65%. There is mildly increased left ventricular wall thickness. The left ventricular diastolic function is grade I diastolic dysfunction. Right Ventricle Right ventricular chamber dimension is normal. Right ventricular systolic function is normal. Left Atria Left atrial chamber dimension is mildly enlarged. Right Atria Right atrial chamber dimension is normal. Atrial Septum Intact interatrial septum visualized by color flow imaging. Aortic Valve The aortic valve is trileaflet. There is no aortic valve stenosis. There is mild aortic valve regurgitation. There is mild aortic valve calcification. Pulmonic Valve The pulmonic valve is not well visualized. There is trace pulmonic regurgitation. Mitral Valve There is trace mitral valve regurgitation. Tricuspid Valve There is trace tricuspid valve regurgitation. Pericardium/Pleural There is no pericardial effusion. Inferior Vena Cava Normal inferior vena cava with >50% collapse upon inspiration consistent with normal right atrial pressure, 3 mmHg. Aorta The aortic root size at the sinus of Valsalva is normal. Left Ventricular Outflow Tract Name Value Normal LVOT 2D LVOT Diameter 2.0 cm LVOT Doppler LVOT Peak Gradient 7 mmHg LVOT Mean Gradient 4 mmHg LVOT VTI 25 cm LVOT VTI/AV VTI Ratio 0.9 LVOT Stroke Volume 76 ml LVOT CO 4.4 l/min LVOT CI 2.3 l/min/m2 Pulmonic Valve Name Value Normal RVOT Doppler RVOT Peak Gradient 5 mmHg PV Doppler PV Peak Gradient 6 mmHg Mitral Valve Name Value Normal MV Doppler MV Decel [place] 559 cm/s2 MV PHT 47 ms MV Area (PHT) 4.7 cm2 4.0-5.0 MV Diastolic Function MV E Peak Velocity 91 cm/s MV A Peak Velocity 106 cm/s MV E/A 0.9 MV Decel Time 163 ms MV Annular TDI MV E/e' (Septal) 31.7 <=8.0 MV E/e' (Lateral) 16.3 <=8.0 MV E/e' (Average) 24.0 Tricuspid Valve Name Value Normal TV Regurgitation Doppler TR Peak Velocity 188 cm/s TR Peak Gradient 14 mmHg Estimated PAP/RSVP RA Pressure 3 mmHg <=5 PA Systolic Pressure 17 mmHg <36 RV Systolic Pressure 17 mmHg <36 Aortic Valve Name Value Normal AV Doppler AV Peak Velocity 147 cm/s AV Peak Gradient 9 mmHg AV Mean Gradient 5 mmHg AV VTI 28 cm AV Area (Cont Eq VTI) 2.7 cm2 >=3.0 AV Area (Cont Eq Nadeem) 2.7 cm2 AV Regurgitation 2D LVOT Area 3.0 cm2 AV Regurgitation Doppler AR Decel Time 1,898 ms AR Decel [place] 183 cm/s2 AR PHT 550 ms Ventricles Name Value Normal LV Dimensions 2D/MM IVS Diastolic Thickness (2D) 0.9 cm 0.6-1.0 LVID Diastole (2D) 5.3 cm 4.2-5.8 LVIW Diastolic Thickness (2D) 0.8 cm 0.6-1.0 LVID Systole (2D) 3.5 cm 2.5-4.0 LVOT Diameter 2.0 cm LV Mass (2D Cubed) 167.84 g 88.00-224.00 LV Mass Index (2D Cubed) 86 g/m2 49-115 Relative Wall Thickness (2D) 0.31 LV Fractional Shortening/Ejection Fraction 2D/MM LV Fractional Shortening (2D) 33 % 25-43 LV EF (2D Teicholz) 61 % 52-72 LV Diastolic Volume (4C MOD) 75 ml LV EF (4C MOD) 56 % LV Diastolic Volume (2C MOD) 57 ml LV EF (2C MOD) 59 % LV Diastolic Volume (BP MOD) 65 ml 62-150 LV Diastolic Volume Index (BP MOD) 34 ml/m2 34-74 LV Systolic Volume (BP MOD) 29 ml 21-61 LV Systolic Volume Index (BP MOD) 15 ml/m2 11-31 LV EF (BP MOD) 56 % 52-72 LV Diastolic Length (4C) 7.5 cm LV Systolic Length (4C) 6.6 cm LV Stroke Volume (4C MOD) 42 ml Atria Name Value Normal LA Dimensions LA Volume (4C A-L) 65 ml LA Volume (BP A-L) 68 ml RA Dimensions RA Area (4C) 11.0 cm2 <=18.0 Report Signatures
--- NOTE | ~2024-06-22 | XR_ITS ---
EXAMINATION: XR chest 2V DATE: 06/22/2024 08:55 INDICATION: Back pain and chills TECHNIQUE: PA and lateral views of the chest were obtained. COMPARISON: Chest CT dated 01/15/2022 FINDINGS: Mild right apical pleural-parenchymal scarring. Calcified pleural plaque and pleural parenchymal scar ring along the right hemidiaphragm with blunting of the costophrenic angle but not the posterior sulc us. Nipple shadow projects between the anterior right fifth and sixth ribs. No other airspace opaciti es, pulmonary edema, pleural effusion or pneumothorax. The cardiomediastinal silhouette is normal. Re verse right total shoulder arthroplasty. There are bridging osteophytes at multiple levels consistent with diffuse idiopathic skeletal hyperostosis (DISH). IMPRESSION: 1. Calcified pleural plaque and mild pleural-parenchymal scarring along the right lung base. No acute cardiopulmonary disease. Reviewed, dictated and finalized at location A. SOFTWARE ENGINEER IMPRESSION: 1. Calcified pleural plaque and mild pleural-parenchymal scarring along the rig ht lung base. No acute cardiopulmonary disease.
--- NOTE | ~2024-06-22 | CT_ITS ---
EXAMINATION: CTA chest abdomen pelvis DATE: 06/22/2024 09:03 INDICATION: Back pain. Hypotension. TECHNIQUE: Computed tomographic angiography (CTA) of the chest, abdomen, and pelvis was performed wit h 100 mL Omnipaque-350 intravenous contrast. Automated exposure control and iterative reconstruction technique were employed. The dose-length product was 497.83 mGy-cm. Maximum intensity projection 3D-r econstructions of the aorta and other arteries were constructed by the technologist on a separate wor kstation. COMPARISON: Chest CT 01/15/2022, cervical spine MRI 10/29/2018 FINDINGS: CHEST CTA: There is mild scarring at the lung apices. There is mild scarring in paraspinal right lower lobe. The re is mild atelectasis bilaterally. There is a 14 mm groundglass opacity in right upper lobe, likely benign. There are calcified pleural plaques on the right. There is chronic peripheral septal thickeni ng in the lungs with an inferior predominance. No pleural effusion. The heart size is normal. There a re coronary artery calcifications. No pericardial effusion. Aortic atherosclerosis is noted. No aneur ysm or dissection. There is a 2.9 cm nodule in left thyroid lobe, stable from 10/29/2018, likely benign . There is a total right shoulder arthroplasty. There are bridging endplate osteophytes at multiple l evels in the spine, consistent with diffuse idiopathic skeletal hyperostosis (DISH). There is moderat e thoracic spondylosis. ABDOMEN AND PELVIS CTA: The liver and gallbladder are normal. Calcifications in the spleen are consistent with old granulomat ous disease. The pancreas, adrenal glands, and kidneys are normal. The bladder is markedly distended. The prostate is severely enlarged. There is diverticulosis of the colon without evidence of divertic ulitis. The appendix is not visualized. There are no dilated loops of bowel. There are no pathologica lly enlarged lymph nodes. There is no free intraperitoneal fluid. Aortic atherosclerosis is noted. Th ere is no significant stenosis of celiac axis, superior mesenteric artery, the renal arteries, or inf erior mesenteric artery. There is severe lumbar spondylosis. IMPRESSION: 1. Aortic atherosclerosis. No aneurysm or dissection. Reviewed, dictated and finalized at location A. ST[employer] P[employer]ER
--- NOTE | 2024-06-22 07:48 | ECG_ITS ---
Test Date: 2024-06-22 08:20:56 Measurements Intervals [place] Rate: 54 P: 0 AL: 0 QRS: -46 QRSD: 168 T: 28 QT: 453 QTc: 433 Interpretive Statements SINUS OR JUNCTIONAL BRADYCARDIA WTH ATRIAL PREMATURE COMPLEXES RIGHT BUNDLE BRANCH BLOCK LEFT ANTERIOR FASCICULAR BLOCK BASELINE ARTIFACT- I, II, III, AVR ABNORMAL ECG No previous ECG available for comparison Electronically Signed On 06-22-2024 08:25:09 [employer]OBE MAKER by Sen Lam D.O.
--- NOTE | 2024-06-22 08:01 | ED.BACK ---
HPI - Back Pain/Injury General Chief Complaint: Back Pain/Injury Stated Complaint: back pain when breathing, sob Time Seen by Provider: 06/22/24 07:39 History of Present Illness HPI Narrative: 89-year-old male with a past medical history significant for interstitial lung disease and diverticulosis. Today presents with 10/10 sudden onset back pain at midnight. He states that the pain got worse with deep inspiration and states the localized to the midline of his back in the low lumbar region. Denies any injuries or traumas and he was in bed when this happened. He states that the pain got worse with short deep breaths and endorses chills as well as 1 episode of vomiting and diarrhea. Patient was otherwise in his normal state of health recently. He denies any other history like this happen to him previously states that his only abdominal surgeries were in childhood. Denies any injuries or falls. Denies any known history of aortic pathology or sciatica. States this does not feel like his previous episode of diverticulitis. Related Data Home Medications Medication Instructions Recorded Confirmed fluticasone propionate 50 2 spray intranasal DAILY PRN 10/12/19 06/22/24 mcg/actuation nasal Congestion spray,suspension acetaminophen 500 mg tablet 500 mg PO Q4-6H PRN Pain 08/23/20 06/22/24 (Tylenol Extra Strength) cholecalciferol (vitamin D3) 25 25 mcg PO DAILY 04/22/24 06/22/24 mcg (1,000 unit) capsule sertraline 100 mg tablet 100 mg PO HS 06/22/24 06/22/24 Allergies Allergy/AdvReac Type Severity Reaction Status Date / Time betamethasone Allergy Intermediate Skin Verified 06/22/24 11:10 reactions Review of Systems Review of Systems: As reviewed above in HPI [facility] Past Medical History Medical History 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 Cough Diverticular disease of colon Diverticulosis large intestine w/o perforation or abscess w/bleeding (03/05/19) Family history of other specified malignant neoplasm Hypercholesterolemia Hypertension Impotence Major depressive disorder, single episode, 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) Memory loss Radicular pain Seasonal allergic rhinitis Surgical History Surgical History History of orthopedic surgery Family History Family History Father Family history of malignant neoplasm, Onset Age: 55 Mother Family history of Alzheimer's disease, Onset Age: 88 Social History Social History Smoking packs per day: 1 Smoking cigarettes per day: 20.0 Years smoked: 15 Smoking pack-years: 15.00 Smoking status: Former smoker Tobacco type: cigarettes Smoking end date: 07/28/1967 Additional smoking assessment comments: quit smoking 46 years Alcohol intake: current Drinks per week: 3 Alcohol use details: social Substance use: never Substance use type: does not use Do You Feel Safe in your Home?: Yes Lack of Transportation: No Lack of Food: Never True Current Housing: I Have Housing Concerned About Future Housing: No Difficulty Paying Gas/Electric Bills: No Difficulty Paying for Meds: No Currently Unemployed: No Education: Trade/Vocational Certificate Difficulty w/ Childcare or Family Care: No Gender identity (if verbalized by the patient): Male Spiritual care concerns: No Exam Narrative: GENERAL: [Well-appearing, well-nourished, and in no acute distress.] HEAD: [Normocephalic, atraumatic.] EYES: [PERRLA and EOMI.] ENT: Nares clear, no rhinorrhea or epistaxis. Mucous membranes moist. NECK: Supple. CHEST: [Clear to auscultation. No respiratory distress.] HEART: [Regular rate and rhythm]. No murmur heard. [Normal peripheral pulses.] ABDOMEN: [Soft, nondistended], [nontender], [No rigidity or guarding] previous ex lap scar EXTREMITIES: Normal range of motion. [No edema.] SKIN: Warm, dry, no rash. NEURO: [No focal deficits]. Alert and oriented [x3.] PSYCH: [Normal mood and affect.] Course Vital Signs Vital signs: Vital Signs Temperature 36.4 C 06/22/24 07:11 Pulse Rate 64 06/22/24 07:11 Respiratory Rate 22 H 06/22/24 07:11 Blood Pressure 93/58 L 06/22/24 07:11 Pulse Oximetry 100 06/22/24 07:11 Oxygen Delivery Room Air 06/22/24 07:11 Temperature 36.4 C 06/22/24 17:37 Pulse Rate 70 06/22/24 18:00 Respiratory Rate 20 06/22/24 17:37 Blood Pressure 154/52 H 06/22/24 17:37 Pulse Oximetry 96 06/22/24 17:37 Oxygen Delivery Room Air 06/22/24 07:11 MDM - Back Pain/Injury MDM Narrative Medical decision making narrative: 89-year-old male presenting for nontraumatic sudden onset back pain in the center of his back that was associated with some episodes of chills and vomiting. He states that with the read to the deep breath the pain got worse. Pain reach did speak this morning and he drove himself to the hospital. He states that since his arrival in sitting in the stretcher the pain slowly started down and presently he is having 1/10 pain. He was noted to be hypotensive in triage with a blood pressure 93/58 but no tachycardia. He was tachypneic and pale-appearing initial encounter by nursing staff however feels much improved during my initial encounter. Repeat vital signs at bedside shortly thereafter without any intervention shows improvement in his blood pressure while lying down flat. Blood pressure 128/60, pulse 55, no tachypnea, respiratory rate of 14. 98% saturation on room air. He has a soft nontender nondistended abdomen a benign examination of the spinal column. Overall well-appearing at this time but given his age and risk factors as well as the sudden nontraumatic nature of his midline back pain raises suspicions for intra-abdominal process or aortic process, less likely musculoskeletal in nature but could also be lumbago or sciatic. He has a history of diverticulosis this could also be a diverticulitis flare they improved. Renal stones are also possible. Overall broad workup was ordered including laboratory assessment CBC, CMP, magnesium, chest xr, ecg, lactic acid in a CT angiography of his abdomen pelvis was ordered. He was provided fluid bolus here in the ER. Laboratory studies showed no leukocytosis or anemia. Normal platelet level. Normal coagulation studies. Electrolyte panel within normal limits, normal renal function panel, negative lactic acid, normal CMP, negative lipase. troponin is elevated at 0.088. Will trend his troponin his delta 3 hour was elevated again at 0.143. Urinalysis shows no active infection. Chest x-rays and reviewed by myself and interpreted by radiology. No acute cardiopulmonary process seen. CT angiography of the chest abdomen pelvis shows aortic atherosclerosis but no aneurysm dissections. No obvious pulmonary process that would explain patient's elevated troponin and symptoms. Patient was re-evaluated multiple times and had symptomatic resolution while here in the emergency department and even expressed desire for discharge at one point. I discussed patient's laboratory studies imaging findings with the patient and encouraged him to be admitted to the hospital given his rising troponin levels despite his symptoms being improved and not causing any pain at this time. Patient was agreeable to this plan of care but did reiterate to me that he is DNR, DNI and does not want any aggressive measures if anything was to happen with his heart stopping. I discussed the case with the on-call hospitalist Dr. Urias who accepted the patient to an IMU but at this time with Cardiology on consult. Differential Diagnosis Differential diagnosis: Likely lumbar radiculopathy, sciatica, strain of lumbar region, renal colic, thoracic back pain, AAA and other Medical Records Attestation: I reviewed the patient's medical records. Lab Data Attestation: I reviewed the patient's lab results. 06/22/24 08:00 06/22/24 08:59 Labs: Lab Results 06/22/24 06/22/24 06/22/24 Range/Units 08:00 08:15 08:59 WBC 6.5 (4.5-10.0) K/mm3 RBC 4.86 (4.6-6.20) M/mm3 Hgb 13.9 L (14.0-18.0) g/dL Hct 41.9 L (42.0-52.0) % MCV 86.2 (80-100) fl MCH 28.6 (26-34) pg MCHC 33.2 (32-36) g/dl RDW 12.4 (11.5-14.5) % Plt Count 221 (150-375) k/mm3 MPV 9.7 (7.4-10.4) fl Immature Gran % (Auto) 0.3 (0-0.5) % Neut % (Auto) 72.4 (45.5-73.1) % Lymph % (Auto) 21.1 (18.3-44.2) % [place] % (Auto) 4.9 (2.6-8.5) % Eos % (Auto) 0.8 (0-4.4) % Baso % (Auto) 0.5 (0.2-1.2) % Lymph # (Auto) 1.37 (0.9-3.2) K/mm3 [place] # (Auto) 0.3 (0.1-0.6) K/mm3 Eos # (Auto) 0.1 (0-0.3) K/mm3 Baso # (Auto) 0.0 (0.0-0.1) K/mm3 Abs Immat Gran (auto) 0.02 (0.00-0.031) K/mm3 Absolute Neuts (auto) 4.7 (1.3-6.7) K/mm3 Absolute Nucleated RBC 0.000 (0.0-0.012) K/mm3 Nucleated RBC % 0.0 (0.0-0.2) % PT 13.3 (11.1-14.7) Seconds INR 1.0 APTT 27.7 (22.3-36.8) Seconds Sodium 139 (137-145) mmol/L Potassium 3.8 (3.4-5.0) mmol/L Chloride 107 (98-107) mmol/L Carbon Dioxide 26 (22-30) mmol/L Anion Gap 6 (4-12) mmol/L BUN 24 H (9-20) mg/dL Creatinine 0.90 1.00 (0.7-1.3) mg/dL Estim Creat Clear Calc 49 44 ml/min Estimated GFR > 60 > 60 (59 - ) Glucose 104 (65-110) mg/dL Lactic Acid 2.0 (0.7-2.0) mmol/L Calcium 9.4 (8.4-10.2) mg/dL Total Bilirubin 0.7 (0.2-1.3) mg/dL AST 25 (17-59) U/L ALT 18 (6-50) U/L Alkaline Phosphatase 79 (38-126) U/L Troponin I 0.088 H* (0.000-0.034) ng/mL Total Protein 7.0 (6.3-8.2) g/dL Albumin 4.1 (3.5-5.1) g/dL Lipase 102 (23-300) U/L Urine Color Yellow (Yellow) Urine Appearance Clear (Clear) Urine pH 5.5 (5.0-9.0) Ur Specific [place] 1.013 (1.001-1.035) Urine Protein Negative (Negative) mg/dL Urine Glucose (UA) Negative (Negative) mg/dL Urine Ketones Negative (Negative) mg/dL Ur Blood (Man) Negative (Negative) Urine Nitrate Negative (Negative) Urine Bilirubin Negative (Negative) Urine Urobilinogen 0.2 (<2.0) mg/dL Leukocyte Esterase Rfl Negative (Negative) CARLA/UL Imaging Data Attestation: I personally reviewed and interpreted this imaging study as follows: My impression: Impressions Chest X-Ray 06/22/24 08:59 IMPRESSION: 1. Calcified pleural plaque and mild pleural-parenchymal scarring along the right lung base. No acute cardiopulmonary disease. Chest/Abdomen/Pelvis CTA 06/22/24 09:08 IMPRESSION: 1. Aortic atherosclerosis. No aneurysm or dissection. ECG Data EKG #1: Attestation: I personally reviewed and interpreted this ECG as follows: ECG completion date: 06/22/24 ECG completion time: 08:20 Prior ECG tracings: not available for review Ischemic changes: non-specific ST-T wave changes EKG Interpretation: bradycardia, sinus rhythm, PACs, non-specific ST changes, RBBB and normal QT Critical Care Time Critical Care Time Critical Care Time: Yes Total Critical Care Time: 35 Discharge Plan Discharge Clinical Impression: Acute non-ST elevation myocardial infarction (NSTEMI), Back pain Patient Disposition: Still a Patient Condition: Stable Time of Disposition: 11:09
[2024-06-22 08:09] LABS: Basophils Percent Auto 0.5 % (0.2-1.2); Eosinophils Absolute Auto 0.1 K/mm3 (0-0.3); Eosinophils Percent Auto 0.8 % (0-4.4); Hematocrit 41.9 % (42.0-52.0); Hemoglobin 13.9 g/dL (14.0-18.0); Immature Granulocyte Absolute 0.02 K/mm3 (0.00-0.031); Immature Granulocyte Percent A 0.3 % (0-0.5); Lymphocytes Absolute Auto 1.37 K/mm3 (0.9-3.2); Lymphocytes Percent Auto 21.1 % (18.3-44.2); Mean Corpuscular HGB Conc 33.2 g/dl (32-36); Mean Corpuscular Hemoglobin 28.6 pg (26-34); Mean Corpuscular Volume 86.2 fl (80-100); Mean Platelet Volume 9.7 fl (7.4-10.4); Monocytes Absolute Auto 0.3 K/mm3 (0.1-0.6); Monocytes Percent Auto 4.9 % (2.6-8.5); Neutrophils Absolute Auto 4.7 K/mm3 (1.3-6.7); Neutrophils Percent Auto 72.4 % (45.5-73.1); Platelet Count Result 221 k/mm3 (150-375); Red Blood Count 4.86 M/mm3 (4.6-6.20); Red Cell Distribution Width 12.4 % (11.5-14.5); White Blood Count 6.5 K/mm3 (4.5-10.0)
[2024-06-22] MEDS: LACTATED RINGERS 1,000 ML 999 ML IV CONT (08:14)
[2024-06-22 08:20] LABS: Prothrombin Time 13.3 Seconds (11.1-14.7)
[2024-06-22 08:21] LABS: Partial Thromboplastin Time 27.7 Seconds (22.3-36.8)
[2024-06-22 08:24] LABS: Alanine Aminotransferase 18 U/L (6-50); Alkaline Phosphatase 79 U/L (38-126); Aspartate Amino Transferase 25 U/L (17-59); Bilirubin,Total 0.7 mg/dL (0.2-1.3); Blood Urea Nitrogen 24 mg/dL (9-20); Calcium 9.4 mg/dL (8.4-10.2); Glucose 104 mg/dL (65-110); Lipase 102 U/L (23-300)
[2024-06-22 08:34] LABS: Add Urine Microscopic? NO; Appearance Urine Clear (Clear); Bilirubin Urine Negative (Negative); Blood Urine Negative (Negative); Color Urine Yellow (Yellow); Glucose Urine UA Negative (Negative); Ketones Urine Negative (Negative); Leukocyte Esterase Ur Negative LEU/UL (Negative); Nitrate Urine Negative (Negative); Protein Urine Negative (Negative); Specific Grav Ur 1.013 (1.001-1.035); Urobilinogen Urine 0.2 mg/dL (<2.0); pH Urine 5.5 (5.0-9.0)
[2024-06-22 08:36] LABS: Troponin I 0.088 ng/mL (0.000-0.034)
[2024-06-22 09:00] LABS: Estimated CRCL calculation 44 ml/min; Estimated Glomerular Filt Rate > 60
[2024-06-22 09:08] LABS: Albumin Level 4.1 g/dL (3.5-5.1); Anion Gap 6 mmol/L (4-12); Carbon Dioxide 26 mmol/L (22-30); Chloride 107 mmol/L (98-107); Estimated CRCL calculation 49 ml/min; Estimated Glomerular Filt Rate > 60; Potassium 3.8 mmol/L (3.4-5.0); Sodium 139 mmol/L (137-145)
--- NOTE | 2024-06-22 11:09 | ECG_ITS ---
Test Date: 2024-06-22 11:27:14 Measurements Intervals [place] Rate: 54 P: 0 VA: 0 QRS: -46 QRSD: 156 T: 9 QT: 475 QTc: 451 Interpretive Statements SINUS OR ECTOPIC ATRIAL BRADYCARDIA WITH ATRIAL PREMATURE COMPLEX RIGHT BUNDLE BRANCH BLOCK LEFT ANTERIOR FASCICULAR BLOCK VOLTAGE CRITERIA FOR LVH BASELINE ARTIFACT- I, II, AVR, AVL, AVF, V3 ABNORMAL ECG Compared to ECG 06/22/2024 08:20:56 NO SIGNIFICANT CHANGE Electronically Signed On 06-22-2024 12:06:44 HOSPITAL CLINIC ASSISTANT by Sen Lam D.O.
[2024-06-22 12:54] LABS: Troponin I 0.143 ng/mL (0.000-0.034)
[2024-06-22 15:01] LABS: Troponin I 0.141 ng/mL (0.000-0.034)
--- NOTE | 2024-06-22 17:46 | ADMGEN ---
This patient, Williams Aparicio, was admitted to IMU Room 206-01. Patient/family oriented to hospital policies and general routines including ID bracelet, bed and alarms, visiting hours, pain management, procedures, bathroom and other care routines, personal items, smoking policy, room service/diet, and visiting hours. Information on how to activate the Rapid Response Team has been discussed. Patient/Family are encouraged to report perceived risks to care and to ask questions if they do not understand what they are told or what they should do.
--- NOTE | 2024-06-22 18:08 | P.HP_ITS ---
H&P: HPI History of Present Illness Date/Time: 06/22/24 18:08 Chief Complaint: back pain and SOB Narrative: 89 yo male with PMH of Anxiety who presented to ER on account of low back pain and SOB. Patient reported eh wqas in his usual jacquie of health until 2 days ago when he stated having low back pain, which he simply characterized as pain about 6-7/10 in intensity, intermittent and associated with SOB. Pain is not worse with movement. Denies any fever, cough, lightheadedness, lower extremities weakness or numbness, no fall or and no trauma. ER eval notable for blood pressure 154/52, labs notable for troponin 0.[address] chest abdomen pelvis no acute findings. EKG showed sinus bradycardia with atrial premature complex at right bundle branch block, left anterior fascicular block. No acute ST-T changes. Cardiology was consulted and patient was admitted for further evaluation and care. Review of Systems Review of Systems: All other systems reviewed and negative except as noted in the history above. 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) Memory loss Radicular pain Seasonal allergic rhinitis Surgical History Surgical History History of orthopedic surgery Family History Family History Father Family history of malignant neoplasm, Onset Age: 55 Mother Family history of Alzheimer's disease, Onset Age: 88 Social History Social History Smoking packs per day: 1 Smoking cigarettes per day: 20.0 Years smoked: 15 Smoking pack-years: 15.00 Smoking status: Former smoker Tobacco type: cigarettes Smoking end date: 07/28/1967 Additional smoking assessment comments: quit smoking 46 years Alcohol intake: current Drinks per week: 3 Alcohol use details: social Substance use: never Substance use type: does not use Do You Feel Safe in your Home?: Yes Lack of Transportation: No Lack of Food: Never True Current Housing: I Have Housing Concerned About Future Housing: No Difficulty Paying Gas/Electric Bills: No Difficulty Paying for Meds: No Currently Unemployed: No Education: Trade/Vocational Certificate Difficulty w/ Childcare or Family Care: No Gender identity (if verbalized by the patient): Male Spiritual care concerns: No Meds Home Medications and Allergies Home Medications Medication Instructions Recorded Confirmed Type fluticasone propionate 50 2 spray intranasal DAILY PRN 10/12/19 06/22/24 History mcg/actuation nasal Congestion spray,suspension acetaminophen 500 mg tablet 500 mg PO Q4-6H PRN Pain 08/23/20 06/22/24 History (Tylenol Extra Strength) cholecalciferol (vitamin D3) 25 25 mcg PO DAILY 04/22/24 06/22/24 History mcg (1,000 unit) capsule sertraline 100 mg tablet 100 mg PO HS 06/22/24 06/22/24 History Allergies Allergy/AdvReac Type Severity Reaction Status Date / Time betamethasone Allergy Intermediate Skin Verified 06/22/24 11:10 reactions Vital Signs Vital Signs - 24 hr 06/22/24 07:11 06/22/24 07:47 06/22/24 10:27 Temperature 97.6 F Pulse Rate 64 55 L 62 Respiratory Rate 22 H 14 21 H Blood Pressure 93/58 L 128/60 128/74 Pulse Oximetry 100 98 99 Oxygen Delivery Room Air 06/22/24 15:08 06/22/24 15:15 06/22/24 15:30 Temperature Pulse Rate 62 67 67 Respiratory Rate 17 21 H 21 H Blood Pressure Pulse Oximetry 96 98 88 L Oxygen Delivery 06/22/24 15:45 06/22/24 16:03 06/22/24 16:16 Temperature Pulse Rate 66 73 69 Respiratory Rate 17 19 20 Blood Pressure Pulse Oximetry 98 97 96 Oxygen Delivery 06/22/24 16:30 06/22/24 16:52 06/22/24 16:57 Temperature Pulse Rate 86 Respiratory Rate 18 Blood Pressure 157/77 H Pulse Oximetry 97 97 Oxygen Delivery 06/22/24 17:00 06/22/24 17:37 Temperature 97.6 F Pulse Rate 62 Respiratory Rate 20 Blood Pressure 154/52 H Pulse Oximetry 95 96 Oxygen Delivery Exam 2 Narrative: General: alert and comfortable Eyes: EOMI, PERRLA ENNT External ears normal, Neck is supple, no masses, Respiratory systems: Clear to auscultation Cardiovascular S1, S2, normal rhythm, no murmur, rub, or gallop; no thrill or palpable murmurs on palpation. Gastrointestinal: soft, non-tender, and non-distended abdomen with no masses; BS present Skin: no rash, lesions, ulcerations, subcutaneous nodules or induration Musculoskeletal: no abnormality and no tenderness, normal ROM Neurologic: Alert and oriented x3, non focal Mental Status Exam: normal affect H&P: Results Labs Labs: Short CBC 06/22/24 Range/Units 08:00 WBC 6.5 (4.5-10.0) K/mm3 Hgb 13.9 L (14.0-18.0) g/dL Hct 41.9 L (42.0-52.0) % Plt Count 221 (150-375) k/mm3 BMP 06/22/24 06/22/24 08:00 08:59 Sodium 139 Potassium 3.8 Chloride 107 Carbon Dioxide 26 BUN 24 H Creatinine 0.90 1.00 Glucose 104 Calcium 9.4 Cardiac Enzymes 06/22/24 06/22/24 06/22/24 Range/Units 08:00 12:08 14:15 Troponin I 0.088 H* 0.143 H* D 0.141 H* (0.000-0.034) ng/mL Liver Function 06/22/24 Range/Units 08:00 Total Bilirubin 0.7 (0.2-1.3) mg/dL AST 25 (17-59) U/L ALT 18 (6-50) U/L Alkaline Phosphatase 79 (38-126) U/L Albumin 4.1 (3.5-5.1) g/dL Urine 06/22/24 Range/Units 08:15 Urine Color Yellow (Yellow) Urine Appearance Clear (Clear) Urine pH 5.5 (5.0-9.0) Ur Specific [place] 1.013 (1.001-1.035) Urine Protein Negative (Negative) mg/dL Urine Glucose (UA) Negative (Negative) mg/dL Assessment and Plan Assessment and plan (1) Elevated troponin: Code(s): R79.89 - Other specified abnormal findings of blood chemistry Status: Acute (2) Hypertension: Qualifiers: Hypertension type: primary hypertension Qualified Code(s): I10 - Essential (primary) hypertension Code(s): I10 - Essential (primary) hypertension Status: Acute (3) Major depression: Qualifiers: Major depression recurrence: recurrent Active/Remission status: in full remission Qualified Code(s): F33.42 - Major depressive disorder, recurrent, in full remission Code(s): F32.9 - Major depressive disorder, single episode, unspecified Status: Acute Plan Back pain with elevated troponin Likely acute coronary syndrome Troponin was 0.141 from 0.088 Patient presented with back pain CT abdomen and chest and pelvis unremarkable. EKG no acute ST-T changes. A1c, lipid profile, echo pending trend troponin. One dose 1 dose Lovenox, start aspirin, Lipitor, metoprolol. NPO from midnight Cardiology consulted. Patient has elevated blood pressure of 154/52 patient denies prior history of Hypertension Statin med to metoprolol Adjust with clinical course. Anxiety Continue medications. DVT prophylaxis subQ Lovenox Patient is DNR Surrogate decision maker is daughter Lay Rodriguez [facility] Advance Care Plan I have confirmed that the patient's Advanced Care Plan is present, code status is documented, or surrogate decision maker is listed in patient medical record.: Yes Medication Reconciliation I have utilized all available resources to obtain, update and review the patients current medications (includes all prescriptions, OTC, herbals, cannabis, and nutritional supplements).: Yes
[2024-06-22] MEDS: ENOXAPARIN 80 MG/0.8 ML SYRINGE 79 MG SUB-Q (18:20)
[2024-06-22] MEDS: ATORVASTATIN 20 MG TABLET PO (18:21)
[2024-06-22] MEDS: METOPROLOL TARTRATE 12.5 MG TABLET PO (21:08)
[2024-06-23] VITALS (12 sets, daily range): BP systolic 135–157; BP diastolic 53–62; PULSE 51–70; RESP 16–18; TEMP 36.4–36.8; O2SAT 92–99
[2024-06-23 05:32] LABS: Cholesterol 233 mg/dL (0-200); HDL Direct 71 mg/dL; Triglycerides 143 mg/dL (<150)
[2024-06-23 05:36] LABS: Hemoglobin A1C 5.7 % (<5.7)
[2024-06-23 05:44] LABS: LDL Cholesterol Direct 115 mg/dL
[2024-06-23 05:49] LABS: Troponin I 0.129 ng/mL (0.000-0.034)
[2024-06-23] MEDS: ASPIRIN 81 MG ENTERIC TABLET PO (08:42)
[2024-06-23] MEDS: METOPROLOL TARTRATE 12.5 MG TABLET PO (08:42)
[2024-06-23] MEDS: ATORVASTATIN 20 MG TABLET PO (08:42)
--- NOTE | 2024-06-23 09:42 | PM.CNCAR ---
Assessment and Plan Assessment and plan (1) Elevated troponin: Code(s): R79.89 - Other specified abnormal findings of blood chemistry Status: Acute Assessment and Plan: Mildly elevated. EKG without ischemic changes. Echo with normal LVEF without appreciable wall motion abnormalities. No chest pain or other anginal symptoms. No additional cardiac workup indicated at this time. Patient himself states he would not want any cardiac testing otherwise. (2) Back pain: Code(s): M54.9 - Dorsalgia, unspecified Status: Acute Assessment and Plan: Has mid and lower back pain. Not cardiac related. Management as per Hospitalist. (3) Hypertension: Qualifiers: Hypertension type: primary hypertension Qualified Code(s): I10 - Essential (primary) hypertension Code(s): I10 - Essential (primary) hypertension Status: Acute Assessment and Plan: Stable. (4) Hyperlipidemia LDL goal <130: Code(s): E78.5 - Hyperlipidemia, unspecified Status: Acute Assessment and Plan: Continue Atorvastatin. Plan Okay to discharge home from a cardiac standpoint. Cardiology will sign off at this time. History of Present Illness History of Present Illness Consult date/time: 06/23/24 09:42 Requesting physician: Seun Lynch MD Consult reason: Other (Elevated troponin) Reason For Visit: Back Pain/Troponin Elevation/RBBB Narrative: This is an 89 year old male who presented with mid and lower back pain. History of hypertension, hyperlipidemia. No prior cardiac issues. No chest pain. Workup shows elevated troponins of 0.088, 0.143, 0.141, 0.129. CTA C/A/P shows aortic atherosclerosis, no aneurysm or dissection. EKGs with sinus bradycardia, RBBB, no ischemic changes. No prior EKGs available for comparison. Echo with LVEF 60-65%, no appreciable wall motion abnormality, mild AR. At the time of my evaluation, he is ambulating the hallways and feeling well. 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) Memory loss Radicular pain Seasonal allergic rhinitis Surgical History Surgical History History of orthopedic surgery Family History Family History Father Family history of malignant neoplasm, Onset Age: 55 Mother Family history of Alzheimer's disease, Onset Age: 88 Social History Social History Smoking packs per day: 1 Smoking cigarettes per day: 20.0 Years smoked: 15 Smoking pack-years: 15.00 Smoking status: Former smoker Tobacco type: cigarettes Smoking end date: 07/28/1967 Additional smoking assessment comments: quit smoking 46 years Alcohol intake: current Drinks per week: 3 Alcohol use details: social Substance use: never Substance use type: does not use Do You Feel Safe in your Home?: Yes Lack of Transportation: No Lack of Food: Never True Current Housing: I Have Housing Concerned About Future Housing: No Difficulty Paying Gas/Electric Bills: No Difficulty Paying for Meds: No Currently Unemployed: No Education: Trade/Vocational Certificate Difficulty w/ Childcare or Family Care: No Gender identity (if verbalized by the patient): Male Spiritual care concerns: No Meds Home Medications and Allergies Home Medications Medication Instructions Recorded Confirmed Type fluticasone propionate 50 2 spray intranasal DAILY PRN 10/12/19 06/22/24 History mcg/actuation nasal Congestion spray,suspension acetaminophen 500 mg tablet 500 mg PO Q4-6H PRN Pain 08/23/20 06/22/24 History (Tylenol Extra Strength) cholecalciferol (vitamin D3) 25 25 mcg PO DAILY 04/22/24 06/22/24 History mcg (1,000 unit) capsule sertraline 100 mg tablet 100 mg PO HS 06/22/24 06/22/24 History Allergies Allergy/AdvReac Type Severity Reaction Status Date / Time betamethasone Allergy Intermediate Skin Verified 06/22/24 11:10 reactions Vital Signs Vital Signs - 24 hr 06/22/24 10:27 06/22/24 15:08 06/22/24 15:15 Temperature Pulse Rate 62 62 67 Respiratory Rate 21 H 17 21 H Blood Pressure 128/74 Pulse Oximetry 99 96 98 Oxygen Delivery Fraction of Inspired Oxygen 06/22/24 15:30 06/22/24 15:45 06/22/24 16:03 Temperature Pulse Rate 67 66 73 Respiratory Rate 21 H 17 19 Blood Pressure Pulse Oximetry 88 L 98 97 Oxygen Delivery Fraction of Inspired Oxygen 06/22/24 16:16 06/22/24 16:30 06/22/24 16:52 Temperature Pulse Rate 69 86 Respiratory Rate 20 18 Blood Pressure Pulse Oximetry 96 97 Oxygen Delivery Fraction of Inspired Oxygen 06/22/24 16:57 06/22/24 17:00 06/22/24 17:37 Temperature 36.4 C Pulse Rate 62 Respiratory Rate 20 Blood Pressure 157/77 H 154/52 H Pulse Oximetry 97 95 96 Oxygen Delivery Fraction of Inspired Oxygen 06/22/24 18:00 06/22/24 17:40 06/22/24 19:50 Temperature 36.9 C Pulse Rate 70 64 Respiratory Rate 16 Blood Pressure 135/46 L Pulse Oximetry 92 Oxygen Delivery Room Air Fraction of Inspired Oxygen 06/22/24 21:08 06/22/24 21:15 06/22/24 22:00 Temperature Pulse Rate 83 65 62 Respiratory Rate Blood Pressure Pulse Oximetry Oxygen Delivery Fraction of Inspired Oxygen 06/23/24 00:00 06/23/24 00:00 06/23/24 00:00 Temperature 36.8 C Pulse Rate 62 51 L 52 L Respiratory Rate 16 18 Blood Pressure 135/59 L Pulse Oximetry 92 99 Oxygen Delivery Room Air Fraction of Inspired Oxygen 06/23/24 02:00 06/23/24 04:45 06/23/24 04:00 Temperature 36.8 C Pulse Rate 55 L 55 L 70 Respiratory Rate 18 16 Blood Pressure 141/62 H Pulse Oximetry 99 97 Oxygen Delivery Room Air Fraction of Inspired Oxygen 06/23/24 04:00 06/23/24 06:00 06/23/24 08:09 Temperature 36.6 C Pulse Rate 53 L 66 54 L Respiratory Rate 18 Blood Pressure 157/54 H Pulse Oximetry 97 Oxygen Delivery Fraction of Inspired Oxygen 06/23/24 08:14 Temperature Pulse Rate Respiratory Rate Blood Pressure Pulse Oximetry 97 Oxygen Delivery Room Air Fraction of Inspired Oxygen 21 Exam Const: General: comfortable and no acute distress HENMT: Mouth: Yes moist mucous membranes Eyes: General: appearance normal, both eyes and all related structures Sclera: sclerae normal Resp: Effort & Inspection: normal respiratory effort Auscultation: clear to auscultation bilaterally Cardio: Rate: regular rate Rhythm: regular rhythm Heart sounds: no murmurs Skin: General skin exam: normal color Neuro: Speech: normal speech Psych: Mental Status: mental status grossly normal Affect: normal affect Results Labs and Meds 06/22/24 08:00 06/22/24 08:59 Lab results: Cardiac Enzymes 06/22/24 06/22/24 06/23/24 Range/Units 12:08 14:15 04:39 Troponin I 0.143 H* D 0.141 H* 0.129 H* (0.000-0.034) ng/mL Lipids 06/23/24 Range/Units 04:39 Triglycerides 143 (<150) mg/dL Cholesterol 233 H (0-200) mg/dL Intake and Output 06/22/24 06/23/24 06/23/24 23:59 07:59 15:59 Intake Total 600 Balance 600 Intake: Oral 600 Other: # Unmeasured Voids 2 Patient Weight 06/23/24 23:59 Weight 76.6 kg
--- NOTE | 2024-06-23 14:25 | PM.DS ---
DS: Admitting Diagnosis Discharge Date 06/23/24 Admitting Diagnosis low back pain with SOB DS: Discharge Diagnosis Discharge Diagnosis (1) Back pain: Code(s): M54.9 - Dorsalgia, unspecified Status: Acute (2) Elevated troponin: Code(s): R79.89 - Other specified abnormal findings of blood chemistry Status: Acute DS: Summary Hospital Course Hospital Course: 89 yo male with PMH of Anxiety who presented to ER on account of low back pain and SOB. Patient reported eh wqas in his usual jacquie of health until 2 days ago when he stated having low back pain, which he simply characterized as pain about 6-7/10 in intensity, intermittent and associated with SOB. Pain is not worse with movement. Denies any fever, cough, lightheadedness, lower extremities weakness or numbness, no fall or and no trauma. ER eval notable for blood pressure 154/52, labs notable for troponin 0.[address] chest abdomen pelvis no acute findings. EKG showed sinus bradycardia with atrial premature complex at right bundle branch block, left anterior fascicular block. No acute ST-T changes. Cardiology was consulted and patient was admitted for further evaluation and care. Patient noted he is asymptomatic this morning, cardiology evaluated patient and patient ntoed he does not want any workup. However cardiology did not recommend any further workup and recommended Lipitor. Patient discharged on Lipitor 20mg. BLood pressure was also elevated on admission and patient was initially on Metoprolol, however i consulted with cardiology Dr Mandujano noted that patient does not need metoprolol, thus patient was discharged on Lisinoptil 5mg daily. he will continue f/u with PCP. F/u with PCP in 3-5 days F/u with cardiology as instructed Topical management Plan Back pain with elevated troponin Likely acute coronary syndrome Troponin was 0.141 from 0.088 Patient presented with back pain CT abdomen and chest and pelvis unremarkable. EKG no acute ST-T changes. A1c, lipid profile, echo pending trend troponin. One dose 1 dose Lovenox, start aspirin, Lipitor, metoprolol. NPO from midnight Cardiology consulted. Patient has elevated blood pressure of 154/52 patient denies prior history of Hypertension Statin med to metoprolol Adjust with clinical course. Anxiety Continue medications. Time Spent with Patient Time attestation: Total time spent providing and/or coordinating discharge services: DS: Data Data Completed and Pending Labs on day of discharge: Labs from last 24 hours 06/23/24 06/22/24 04:39 14:15 Hemoglobin A1c 5.7 Troponin I 0.129 H* 0.141 H* Triglycerides 143 Cholesterol 233 H LDL Cholesterol Direct 115 HDL Direct 71 Discharge Plan Discharge Attending physician on discharge: Lorena Bingham Consulting providers: Kamar Mandujano Discharging Clinician: Lorena Bingham Anticipated Discharge Date/Time: 06/23/24 14:21 Patient Disposition: Home, Self-Care Activity: as tolerated Diet: as tolerated Patient Instructions: Antibiotic Form, High Troponin Levels (GEN) Stand Alone Forms: General Discharge Information Follow-up/Referrals: Amirah Vizcaino APRN [Primary Care Provider] - (F/u with PCP in 3-5 days ) Kamar Mandujano MD [Physician] - (F/u with Dr Mandujano as instructed ) Discharge Medications: New lisinopril 5 mg tablet 5 mg PO DAILY Qty: 30 0RF atorvastatin 20 mg Tablet 20 mg PO DAILY 30 Days Qty: 30 0RF Continued acetaminophen [Tylenol Extra Strength] 500 mg tablet 500 mg PO Q4-6H PRN (Reason: Pain) cholecalciferol (vitamin D3) 25 mcg (1,000 unit) capsule 25 mcg PO DAILY sertraline 100 mg tablet 100 mg PO HS fluticasone propionate 50 mcg/actuation spray,suspension 2 spray NASAL DAILY PRN (Reason: Congestion) Rx Instructions: administer into each nostril Date of admission: 06/22/24 11:09 Primary Care Provider: Amirah Vizcaino Admitting Provider: Celestino Urias Attending physician on admission: Celestino Urias Condition: Stable
== END 2024-06-23 14:36 | disposition home or self-care (01) ==
LOC: ANHED 07:45 → ANHIMU 17:23 → ANH3MEDSUR 06-28 07:33
PROVIDERS: Admitting Provider Internal Medicine; Emergency Provider Student in an Organized Health Care Education/Training Program; PCP Nurse Practitioner Family; Visit Provider Internal Medicine
DX: M54.50 Low back pain, unspecified (principal); R06.02 Shortness of breath; R79.89 Other specified abnormal findings of blood chemistry; I10 Essential (primary) hypertension; E78.5 Hyperlipidemia, unspecified; K57.30 Diverticulosis of large intestine without perforation or abscess without bleeding; N52.9 Male erectile dysfunction, unspecified; F33.42 Major depressive disorder, recurrent, in full remission; F41.9 Anxiety disorder, unspecified; R41.3 Other amnesia; J30.9 Allergic rhinitis, unspecified; Z66 Do not resuscitate; Z79.899 Other long term (current) drug therapy; Z87.891 Personal history of nicotine dependence; Z86.73 Personal history of transient ischemic attack (TIA), and cerebral infarction without residual deficits; Z80.9 Family history of malignant neoplasm, unspecified
CPT/HCPCS: 36415; 71046; 71275; 74174; 80053; 80061; 81003; 83036; 83605; 83690; 84484; 85025; 85610; 85730; 93005; 93306; 96360; 96372; 99291; A9270; G0378; J1650; J7120; Q9967

== ENCOUNTER 2024-10-14 16:47 | Emergency (ER) | payer MEDICARE, SELFPAY ==
--- NOTE | ~2024-10-14 | CT_ITS ---
History: Fall, headache, epistaxis PROCEDURE: CT head without contrast. COMPARISON: 12/13/2021 TECHNIQUE: Axial imaging of the head performed from the skull base to the vertex without IV contrast. Sagittal a nd coronal reformations obtained. DLP: 605 mGy-cm FINDINGS: The ventricles are enlarged. The dilatation of the ventricles is proportional to the degree of sulcal prominence, not uncommon in the senescent brain. Decreased attenuation is identified within the periventricular white matter, likely secondary to micr ovascular ischemic disease, in a patient of this age. There is no mass, mass effect or midline shift. There is no abnormal extra-axial fluid collection or intracranial hemorrhage. Visualized paranasal sinuses are clear. The mastoid air cells are well aerated. No acute displaced fractures within the overlying cranium. Soft tissue swelling overlying the right lobe and superior orbital rim. Impression: No acute intracranial hemorrhage or suspicious mass effect. Reviewed, dictated and finalized at location A. Impression: No acute intracranial hemorrhage or suspicious mass effect.
--- NOTE | ~2024-10-14 | CT_ITS ---
History: Fall, headache, epistaxis PROCEDURE: CT cervical spine and facial bones without intravenous contrast. COMPARISON: None 12/13/2021 TECHNIQUE: Multiple contiguous axial images of the cervical spine were performed without the administration of i ntravenous contrast. DLP: 385.5 mGy-cm FINDINGS: Preservation of the normal curvature of the cervical spine is identified. Significant degenerative disease is identified with osteophyte formation, disc space narrowing, endpl ate changes and vacuum phenomena. Severe facet arthropathy is also noted. No acute fractures are present within the cervical spine. Biapical scarring. Calcified pleural plaques are also present. No soft tissue abnormality is present. The airway is unremarkable. No acute facial fractures are present. Impression: Severe degenerative disease. No acute fracture within the cervical spine or the facial bones. Reviewed, dictated and finalized at location A. Impression: Severe degenerative disease. No acute fracture within the cervical spine or the facial bones.
--- NOTE | ~2024-10-14 | XR_ITS ---
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 Narrowing of the distal interphalangeal joint spaces are also present, poorly visualized secondary to positioning. Significant degenerative disease is identified within the first carpometacarpal joint space, unchange d from prior. Lateral to the fifth metacarpal phalangeal joint space is a 2 mm radiopaque density, for which a radi opaque foreign body is suspected as this was not present on the previous examination. Remaining soft tissues are otherwise unremarkable without additional radiopaque foreign bodies or sig nificant calcification. IMPRESSION: Radiopaque foreign body within the soft tissues lateral to the fifth metacarpal phalange al joint space. Otherwise stable radiographic evaluation of the right hand, when compared with previous study perform ed 12/13/2021. No acute fracture or dislocation is appreciated. Reviewed, dictated and finalized at location A. IMPRESSION: Radiopaque foreign body within the soft tissues lateral to the fif th metacarpal phalangeal joint space. Otherwise stable radiographic evaluation of the right hand, when compared with previous study performed 12/13/2021. No acute fracture or dislocation is appreciated.
--- OUTSIDE RECORDS SUMMARY | 2024-10-14 16:49 | XMS_ITS | Clinical Summary ---
Author Organization [facility] Address [address] [place] [address] Care Team Providers Care Campground Hand Name Role Phone Unavailable Primary Care Provider Unavailabl e Social History Tobacco Use Types Packs/Day Years Used Date Smoking Tobacco: Never Assessed Sex and Gender Information Value Date Recorded Sex Assigned at Not on file Legal Sex Male 7:38 PM CDT Gender Identity Not on file Sexual Orientation Not on file Plan of Treatment Health Maintenance Due Date Last Done Comments DTaP, Tdap and Td Vaccines ( 1 - Tdap) 1954 Zoster Vaccines (1 of 2) 1985 Pneumococcal Vaccine: 65+ Ye ars (1 of 1 - PCV) 2000 RSV Immunization or 60+ Years (1 - 1-dose 75+ series) 2010 COVID-19 Vaccine ( - 2023-2 5 season) 2024 Influenza Adult (#1) 2024 Meningococcal B Vaccine Aged Out No l onger eligible based on patient's age to complete this topic Meningococcal Vaccine Aged Out No brii víctor eligible based on patient's age to complete this topic RSV Immunizations Under 20 Months Aged Out No longer eligible based on patient's age to complete this topic
--- OUTSIDE RECORDS SUMMARY | 2024-10-14 16:49 | XMS_ITS ---
Author Organization [facility] Address [address] [place] [address] Care Team Providers Care Svp Business Development Name Role Phone Adalberto Luque DO Primary Care Provider [phone] Active Problems Problem Noted Date Diagnosed Date Lung nodule 01/16/2022 Overview (01/16/2022): Incidental finding from CT 09/07/21. CT shoulder1.6 cm groundglass nodularity/opacity within the right upper lobe. Recommend follow up of the Incidental lung nodule Additional Imaging in [address] 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 Past Treatment and Therapy Plans No past plan information found. Lifetime Dose Tracking * Chemical Lifetime Dose Automatic Entry Manual Entr y DLP 298 mGycm 298 mGycm 0 mGycm
--- OUTSIDE RECORDS SUMMARY | 2024-10-14 16:49 | XMS_ITS | Referral Summary ---
Author Organization [facility] Address [address] [place] [address] Care Team Providers Care Senior Backup Administrator Name Role Phone Adalberto Luque DO Primary Care Provider [phone] Allergies No known active allergies Medications cetirizine (ZyrTEC) 10 mg tabletIndicatio ns:Seasonal Allergic Rhinitis Take 10 mg by mouth as needed for allergies Active fluticasone propionate (FLONASE) 50 mcg/actuation nasal spray Administer 2 sprays into affected nostril(s) as needed for rhinitis or allergies Active multivitamin with minerals tabletIndicatio ns:Vitamin Deficiency Prevention Take 1 tablet by mouth every morning Active atorvastatin (LIPITOR) 10 mg tabletIndicatio ns:hyperlipidem ia Take 10 mg by mouth nightly 1 Active sertraline (ZOLOFT) 100 mg tabletIndicatio ns:Anxiety with Depression Take 100 mg by mouth nightly 1 Active diclofenac sodium (VOLTAREN) 1 % gelIndications: Osteoarthritis Apply 2 g topically as needed DO NOT APPLY TO RIGHT SHOULDER SURGICAL INCISION. 2 Active acetaminophen 500 mg capsuleIndicati ons:Pain Take 2 capsules (1,000 mg total) by mouth every 6 (six) hours 60 tablet 1 2 Active aspirin 81 mg enteric coated tabletIndicatio ns:Deep Vein Thrombosis Prevention Take 1 tablet (81 mg total) by mouth 2 (two) times a day 28 tablet 2 Active docusate sodium (COLACE) 100 mg capsuleIndicati ons:constipatio n Take 1 capsule (100 mg total) by mouth 2 (two) times a day May increase to 4 tablets twice daily if needed. HOLD medication for diarrhea. 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 Monthly or less 09/12/2021 Q2: How many drinks containi ng alcohol do you have on a typical day when you are drinking? 1 or 2 09/12/2021 Q3: How often do you have si x or more drinks on one occasion? Never 09/12/2021 Sex and Gender Information Value Date Recorded Sex Assigned at Not on file Legal Sex Male 2:12 AM COLLAR RUNNER Gender Identity Not on file Sexual Orientation Not on file Last Filed Vital Signs Vital Sign Reading Time Taken Comments Blood Pressure 141/65 09/13/2021 9:45 AM COLLAR RUNNER Pulse 71 09/13/2021 9:45 AM COLLAR RUNNER Temperature 36.7 C (98 F) 09/13/2021 9:45 AM COLLAR RUNNER Respiratory Rate 18 09/13/2021 9:45 AM COLLAR RUNNER Oxygen Saturation 91% 09/13/2021 9:45 AM COLLAR RUNNER Inhaled Oxygen Concentration - - Weight 77.1 kg (170 lb) 01/23/2022 9:47 AM CDT Height 175.3 cm (5' 9 ) 01/23/2022 9:47 AM CDT Body Mass Index 25.1 01/23/2022 9:47 AM CDT Plan of Treatment Not on file Medical Devices Implanted Type Area Risk Management Specialist Device Identifier Shelf Expiration Date Model / Serial / Lot [employer] [id number] Aequalis Perform Reversed Od5 Mm L46 Mm Peripheral Glenoid Screw Baseplate Nonsterile - [id number] - [id number] Implanted:Qty: 1 on 09/12/2021 by Gerardo Elizabeth MD at [facility] Screw Right: Shoulder [employer] [id number] / [id number] / Nelson Knees Knee [employer] [id number] Tornier Aequalis Perform 15mm Press Fit Long Post Shoulder - [id number] - [id number] Implanted:Qty: 1 on 09/12/2021 by Gerardo Elizabeth MD at [facility] Right: Shoulder [employer] 08/10/2026 [id number] / [id number] / [employer] [id number] Od25 Mm Full Wedge Augment Shoulder 15 D Baseplate Glenoid - [id number] - [id number] Implanted:Qty: 1 on 09/12/2021 by Gerardo Elizabeth MD at [facility] Right: Shoulder [employer] [id number] 06/05/2026 [id number] / [id number] / [employer] [id number] Tornier Aequalis Perform 36mm Reverse Shoulder Standard Sphere - [id number] - [id number] Implanted:Qty: 1 on 09/12/2021 by Gerardo Elizabeth MD at [facility] Right: Shoulder [employer] 07/25/2026 [id number] / [id number] / [employer] [id number] Aequalis Perform Reversed 5mm 30mm Peripheral Glenoid Screw - [id number] - [id number] Implanted:Qty: 1 on 09/12/2021 by Gerardo Elizabeth MD at [facility] Right: Shoulder [employer] [id number] / [id number] / [employer] [id number] Insert Perform 10 Deg [id number] - [id number] - [id number] Implanted:Qty: 1 on 09/12/2021 by Gerardo Elizabeth MD at [facility] Right: Shoulder [employer] 03/01/2026 [id number] / [id number] / [employer] [id number] Stem Perform Sz 3 Plus Humeral - [id number] Implanted:Qty: 1 on 09/12/2021 by Gerardo Elizabeth MD at [facility] Right: Shoulder [employer] 03/01/2026 [id number] / / Insurance MEDICARE AETNA SENIOR SUPPLEMENT MEDICARE AET Advance Directives For more information, please contact: [phone] Documents on File Type Date Recorded Patient Administrative Project Coordinator Expl anation ADVANCE DIRECTIVE 11/27/2012 12:00 AM ELISABETH RAMIREZ ADVANCE DIRECTIVE 11/27/2012 12:00 AM POWER OF MACHINIST SUPERVISOR OUTSIDE FINANCIAL/MEDICAL * Full Code (Latest Code Status on File) Date Activated Date Inactivated Comments 09/12/2021 11:50 AM 09/13/2021 2:56 PM Care Teams Senior Backup Administrator Relationship Specialty Start Date End Date Adalberto Luque DO PCP - General Internal Medicine 11/26/18
--- OUTSIDE RECORDS SUMMARY | 2024-10-14 16:50 | XMS_ITS | Continuity of Care Document ---
Author Organization [facility] Address [address] [facility] [address] [place] [address] Phone Care Team Providers Care Master Police Detective Name Role Phone Valente Mcdaniel Unavailable Unavailable Procedures Procedure Date Post-op Follow-up Visit Post-op Follow-up Visit Post-op Follow-up Visit Remove Cataract, Insert Lens,Comanaged A Post-op Follow-up Visit IOLMaster-Professional Post-op Follow-up Visit Remove Cataract, Insert Lens,Comanaged M Office Consultation IOLMaster Advance Directives Directive Yes / No Effective Date File Name No Information Encounters Encounter Description Practice Location Reason(s) For Visit Diagnoses Date Provider Providers Copied on Encounter [facility], [address] [place] [address] [address], [place], [place], [address], tel:[phone] [facility] No Information 2-200 8 Violeta Victro. [address] , [address], [place], [address], [place]. tel:[phone] Referring Provider: Javad Solis, [address] [facility], [place], [address]. tel:[phone] [facility], [address], [place], [place], [address], tel:[phone] [facility] No Information Oct-2 4-200 8 Doisy Edward. [address] , [address], [place], [place], [facility], [place]. tel:[phone] Referring Provider: Javad Solis, [address] [facility], [place], [address]. tel:[phone] [facility], [address] [place] [address] [address], [place], [place], [address], tel:[phone] [facility] No Information Oct- 6-200 8 Doisy Edward. [address] [facility] , [address], [place], [place], [facility], [place]. tel:[phone] Referring Provider: Javad Solis, [address] [facility], [place], [address]. tel:[phone] [facility], [address] [place] [address] [address], [place], [place], [address], tel:[phone] [facility] No Information Oct-1 5-200 8 Doisy Edward. [address] [facility] , [address], [place], [facility], [place]. tel:[phone] Referring Provider: Javad Solis, [address] [facility], [place], [address]. tel:[phone] [facility], [address], [place], [place], [address], [place] tel:[phone] [facility] No Information Sep- 0-200 8 Doisy Edward. [address] [facility] , [address], [place], [facility], [place]. tel:[phone] Referring Provider: Javad Solis, [address] [facility], [place], [address]. tel:[phone] [facility], [address], [place], [place], [address], tel:[phone] [facility] No Information Sep- 2-200 8 Garo Payton. [address] [facility] [place] [address], [place], [facility], . tel:[phone] Referring Provider: Javad Solis, [address] [facility], [place], [address]. tel:[phone] [facility], [address] [place], [place] [address], [place], [address], tel:[phone] [facility] No Information Sep- 2-200 8 Violeta Edligia. [address] [facility] , [address], [place], [facility], . tel:[phone] Referring Provider: Javad Solis, [address] [facility], [place], [address]. tel:[phone] Office Consultation [facility], [address] [place], [place] [address], [place], [address], tel:[phone] [facility] No Information 0-200 8 Violeta Victor. [facility] , [address], [place], [facility], . tel:[phone] Referring Provider: Javad Solis, [address] [facility], [place], [address]. tel:[phone] Family History Family Member Type Diagnosis Age At Onset No Information Payers Payer name Insurance type Covered green party ID Authoriza tion(s) No Information Social History Type Description Quantity Date Captured Comments Sex Male Smoking Status No Information Chief Complaint And Reason For Visit No Information Reason For Referral Reason For Referral No Information History Of Present Illness Encounter Date Complaint History Of Prese nt Illness No Information Functional Status Date Functional Assessmen t No Information Instructions Date Instruction Additional Infor mation No Information Assessments Type Assessment Date No Information Patient Care Teams Name Effective Dates (start - stop) Status Members No Information
--- OUTSIDE RECORDS SUMMARY | 2024-10-14 16:50 | XMS_ITS | Encounter Summary ---
Author Organization [facility] Health Address [address] [facility] [place] [address] Care Team Providers Care Volunteer Services Assistant Name Role Phone Zachery Freire MD Unavailable [phone] Adalberto Luque DO Primary Care Provider [phone] Encounter Details Date Type Department Care Team (Late st Contact Info) Description 06/07/2020 Lab Requisition [facility] DermPath Lab [address] [facility] [place] [id number] [place]g [place] [address] Social History Tobacco Use Types Packs/Day Years Used Date Smoking Tobacco: Former Cigarettes Q uit: 07/22/1968 Smokeless Tobacco: Never Alcohol Use Standard Drinks/Week Comments No 0 (1 standard drink = 0.6 oz pur e alcohol) Sex and Gender Information Value Date Recorded Sex Assigned at Not on file Gender Identity Not on file Sexual Orientation Not on file documented as of this encounter Plan of Treatment Not on file documented as of this encounter Procedures Procedure Name Priority Date/Time Associated Diagnosis Comments DERMATOPATHOLOGY Routine 06/06/2020 12:0 0 AM SURVEY RESEARCH ANALYST documented in this encounter Results * DERMATOPATHOLOGY (06/06/2020 12:00 AM SURVEY RESEARCH ANALYST) Case Report Dermatopathology Report Case: [id number] Authorizing Provider: Kg Herbert MD Collected: 06/06/2020 12:00 AM Ordering Location: [facility] DermPath Lab Received: 06/07/2020 12:07 PM Pathologist: Navi Buckner MD Specimen: Skin, left lat rastafarian 0 5:56 PM SURVEY RESEARCH ANALYST DERMATOPATHOLOGY LABORATORY Final Diagnosis Specimen A. SKIN, left lat rastafarian: HEALING SKIN CHANGES (L90.5) PRESENT AT MARGIN 0 5:56 PM SURVEY RESEARCH ANALYST DERMATOPATHOLOGY LABORATORY Clinical History Bx proven BCC nodular type. Previous Bx: [id number]. 0 5:56 PM SURVEY RESEARCH ANALYST DERMATOPATHOLOGY LABORATORY Gross Description Specimen A: Received is one formalin filled container labeled with the patient's name and designated left lat rastafarian. The specimen consists of a curettage and desiccation biopsy measuring [id number]. Jar 0. 0 5:56 PM [facility] DERMATOPATHOLOGY LABORATORY Microscopic Description Specimen A. SKIN, left lat rastafarian: There is epidermal hyperplasia beneath which there are vascular proliferation, fibroblasts, and an edematous stroma. This lesion is present at the margin of the specimen. 0 5:56 PM SURVEY RESEARCH ANALYST DERMATOPATHOLOGY LABORATORY Disclaimer An external and internal positive and negative controls are appropriate for the histochemical, immunohistochemical and immunofluorescence stain(s) in this case (if any), except where stated explicitly. The performance characteristics of the stain(s) cited in this report were developed and its performance characteristic determined by the Dermatopathology Laboratory at [facility], directed by Dr. Feliciano Buckner. These tests need not be, and therefore are not, approved by the [place] Food and Drug Administration. The tests are used for clinical purposes. Billing Codes Specimen Charges Stain Charges 06610 1 0 5:56 PM SURVEY RESEARCH ANALYST DERMATOPATHOLOGY LABORATORY Embedded Images 0 5:56 PM SURVEY RESEARCH ANALYST DERMATOPATHOLOGY LABORATORY Pathology/Cytolog y TISSUE SPECIMEN FROM SKIN / Unknown 06/06/2020 06/07/2020 12:07 PM [facility] Kg Herbert MD LAB - PATHOLOGY/CYTO LOGY ORDERABLES DERMATOPATHOLOGY LABORATORY [facility] - Department of Dermatology [address], [address] [phone] documented in this encounter Visit Diagnoses Not on filedocumented in this encounter Care Teams Volunteer Services Assistant Relationship Specialty Start Date End Date Adalberto Luque DO [address] [place] [address] PCP - General 04/10/18 [place] [address] [place] [address] Orthopedic Surgery 03/16/13 documented as of this encounter
--- OUTSIDE RECORDS SUMMARY | 2024-10-14 16:50 | XMS_ITS | Encounter Summary ---
Author Organization [facility] Facility Care Team Providers Care Freight Car Cleaner Delta System Name Role Phone Adalberto Luque DO Primary Care Provider [phone] Encounter Details Date Type Department Care Team (Latest Contact Info) Description 09/29/2015 Orders Only [facility] CLINCONV ProviderDonta MD [address] [place] [address] Social History Tobacco Use Types Packs/Day Years Used Date Smoking Tobacco: Never Assessed Sex and Gender Information Value Date Recorded Sex Assigned at Not on file Legal Sex Male 2:12 AM IT APPLICATIONS ANALYST Gender Identity Not on file Sexual Orientation Not on file documented as of this encounter Plan of Treatment Not on file documented as of this encounter Procedures Procedure Name Priority Date/Time Associated Diagnosis Comments PROCEDURE - RESULT 09/29/2015 12 :00 AM IT APPLICATIONS ANALYST documented in this encounter Results * PROCEDURE - RESULT (09/29/2015 12:00 AM IT APPLICATIONS ANALYST) Narrative 09/29/2015 12:00 AM IT APPLICATIONS ANALYST Ordered by an unspecified provider. Historical Provider Final Res ult documented in this encounter Visit Diagnoses Not on filedocumented in this encounter Care Teams Freight Car Cleaner Delta System Relationship Specialty Start Date End Date Adalberto Luque DO PCP - General Internal Medicine 11/26/18 documented as of this encounter
--- OUTSIDE RECORDS SUMMARY | 2024-10-14 16:50 | XMS_ITS | Encounter Summary ---
Author Organization [facility] Health Address [address] [facility] [place] [address] Care Team Providers Care Box Sealing Machine Operator Name Role Phone Zachery Freire MD Unavailable [phone] Adalberto Luque DO Primary Care Provider [phone] Encounter Details Date Type Department Care Team (Late st Contact Info) Description 04/27/2020 Lab Requisition [facility] DermPath Lab [address] [facility] [place] [id number] Kg Herbert MD [place] [address] Social History Tobacco Use Types Packs/Day Years [...] Priority Date/Time Associated Diagnosis Comments DERMATOPATHOLOGY Routine 04/26/2020 12:0 0 AM CDT documented in this encounter Results * DERMATOPATHOLOGY (04/26/2020 12:00 AM CDT) Case Report Dermatopathology Report Case: [id number] Authorizing Provider: Kg Herbert MD Collected: 04/26/2020 12:00 AM Ordering Location: [facility] DermPath Lab Received: 04/27/2020 11:34 AM Pathologist: Navi Buckner MD Specimens: A) - Skin, left lat sabianism B) - Skin, left lat elbow 0 2:07 PM CDT DERMATOPATHOLOGY LABORATORY Final Diagnosis Specimen A. SKIN, left lat sabianism: BASAL CELL CARCINOMA, NODULAR TYPE (C44.319) PIGMENTED SEBORRHEIC KERATOSIS (L82.1) (see microscopic description) Specimen B. SKIN, left lat elbow: BENIGN VERRUCOUS KERATOSIS (L82.1) 0 2:07 PM T DERMATOPATHOLOGY LABORATORY Clinical History A: R/O BCC. B: R/O BCC, SCC. 0 2:07 PM CDT DERMATOPATHOLOGY LABORATORY Gross Description Specimen A: Received is one formalin filled container labeled with the patient's name and designated left lat sabianism. The specimen consists of a shave biopsy measuring [id number]. Jar 0. Specimen B: Received is one formalin filled container labeled with the patient's name and designated left lat elbow. The specimen consists of a shave biopsy measuring [id number]. Jar 0. 0 2:07 PM CDT DERMATOPATHOLOGY LABORATORY Microscopic Description Specimen A. SKIN, left lat sabianism: Within the dermis there are aggregates of basaloid cells with a high nuclear to cytoplasmic ratio and peripheral palisading. Sections also show an acanthotic lesion composed of relatively uniform keratinocytes. There is hyperkeratosis and pseudo horn cysts. Pigment is present in the keratinocytes composing this tumor. Specimen B. SKIN, left lat elbow: Sections show hyperkeratosis, papillomatosis, hypergranulosis, and acanthosis. These histological findings can be seen in a verruca vulgaris or a seborrheic keratosis. 0 2:07 PM T DERMATOPATHOLOGY LABORATORY Disclaimer An external and internal positive and negative controls are appropriate for the histochemical, immunohistochemical and immunofluorescence stain(s) in this case (if any), except where stated explicitly. The performance characteristics of the stain(s) cited in this report were developed and its performance characteristic determined by the Dermatopathology Laboratory at [facility], directed by Dr. Feliciano Buckner. These tests need not be, and therefore are not, approved by the [place] Food and Drug Administration. The tests are used for clinical purposes. Billing Codes Specimen Charges Stain Charges 57089 74964 1 1 0 2:07 PM CDT DERMATOPATHOLOGY LABORATORY Embedded Images 0 2:07 PM CDT DERMATOPATHOLOGY LABORATORY Pathology/Cytology TISSUE SPECIMEN FROM SKIN / Unknown 04/26/2020 04/27/2020 11:34 AM CDT Miscellaneous samples (specimen) TISSUE SPECIMEN FROM SKIN / Unknown 04/26/2020 04/27/2020 11:34 AM CDT Kg Herbert MD LAB - PATHOLOGY/CYTO LOGY ORDERABLES DERMATOPATHOLOGY LABORATORY [facility] - Department of Dermatology [address], [address] [phone] documented in this encounter Visit Diagnoses Not on filedocumented in this encounter Care Teams Box Sealing Machine Operator Relationship Specialty Start Date End Date Adalberto Luque DO [address] [place] [address] PCP - General 04/10/18 [place] [address] [address] Orthopedic Surgery 03/16/13 documented as of this encounter
--- OUTSIDE RECORDS SUMMARY | 2024-10-14 16:50 | XMS_ITS | Clinical Summary ---
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 11/15/19 17 Dry eyes, bilateral 11/09/2016 Sinusitis, chronic 10/31/2016 Basal cell carcinoma of helix 08/20/2013 Surgical History Surgery Date Site/Laterality Comments HAND SURGERY LIVER SURGERY 07/28/1953 - 07/27/1954 LIVER SURGERY 07/28/1953 - 07/27/1954 Ruptured Liver Repair ADHESIOLYSIS 07/28/1954 - 07/27/1955 Bowel adhesiolysis TONSILLECTOMY 07/28/1955 - 07/27/1956 BACK SURGERY 07/28/1959 - 07/27/1960 Ruptured disc repair KNEE ARTHROSCOPY 01/2099 Right OTHER SURGICAL HISTORY 07/28/1971 - 07/27/1972 Vasectomy ROTATOR CUFF REPAIR 07/28/1998 - 07/27/1999 Right CARPAL TUNNEL RELEASE 07/28/1978 - 07/27/1979 Right TOTAL KNEE ARTHROPLASTY 07/28/1999 - 07/27/2000 Right ROTATOR CUFF REPAIR Left ? date TOTAL KNEE ARTHROPLASTY 07/28/2006 - 07/27/2007 Left CARPAL TUNNEL RELEASE 07/28/2007 - 07/27/2008 Left CATARACT EXTRACTION EXTRACAPSULAR W/ INTRAOCULAR LENS IMPLANTATION 07/28/2007 - 07/27/2008 Bilateral WRIST SURGERY 07/28/2008 - 07/27/2009 Right SKIN CANCER EXCISION 07/28/2014 - 07/27/2015 Left ear TRIGGER FINGER RELEASE 07/28/2015 - 07/27/2016 Right x3 trigger fingers SKIN CANCER EXCISION 07/28/2015 - 07/27/2016 Cheek SKIN CANCER EXCISION 07/28/2017 - 07/27/2018 Forehead and Palm Medical History Medical History Date Comments GERD (gastroesophageal reflux disease) Cancer (HCC) skin HLD (hyperlipidemia) OA (osteoarthritis) Depression Deafness right ear, [place]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 Family History Medical History Relation Name Comments Anesthesia problems Neg Hx Social History Tobacco Use Types Packs/Day Years [...] on file Legal Sex Male 2:12 AM PUNCH OUT CREW MEMBER Gender Identity Not on file Sexual Orientation Not on file Obstetrics History Last Filed Vital Signs Vital Sign Reading Time Taken Comments Blood Pressure 141/65 09/13/2021 9:45 AM PUNCH OUT CREW MEMBER Pulse 71 09/13/2021 9:45 AM PUNCH OUT CREW MEMBER Temperature 36.7 C (98 F) 09/13/2021 9:45 AM PUNCH OUT CREW MEMBER Respiratory Rate 18 09/13/2021 9:45 AM PUNCH OUT CREW MEMBER Oxygen Saturation 91% 09/13/2021 9:45 AM PUNCH OUT CREW MEMBER Inhaled Oxygen Concentration - - Weight 77.1 kg (170 lb) 01/23/2022 9:47 AM CDT Height 175.3 cm (5' 9 ) 01/23/2022 9:47 AM CDT Body Mass Index 25.1 01/23/2022 9:47 AM CDT Plan of Treatment Health Maintenance Due Date Last Done Comments Depression Screening 1935 Hepatitis B Screening 1953 Well Visit 65+ 2000 Fall Risk Assessment 09/13/2022 09/13/2021 Covid-19 Vaccine (4 - 2023-2 5 season) 2024 05/22/2021, 10/06/2020, 09/08/2020 Influenza Vaccine (#1) 2024 , 03/27/2020, 05/25/2019, Additional history exists DTaP/Tdap/Td Vaccine (3 - Td or Tdap) 04/20/2031 04/20/2021, 04/13/2019 Pneumococcal vaccine 65+ Completed 05/12/2016, 03/29 Zoster Vaccine Completed 03/06/2019, 11/26/2018 Medical Devices Implanted Type Area Stacker Operator Device Identifier Shelf Expiration Date Model / Serial / Lot [employer] [id number] Aequalis Perform Reversed Od5 Mm L46 Mm Peripheral Glenoid Screw Baseplate Nonsterile - [id number] - [id number] Implanted:Qty: 1 on 09/12/2021 by Gerardo Elizabeth MD at [facility] Screw Right: Shoulder [employer] [id number] / [id number] / [place] Knees Knee [employer] [id number] Tornier Aequalis Perform 15mm Press Fit Long Post Shoulder - [id number] - [id number] Implanted:Qty: 1 on 09/12/2021 by Gerardo Elizabeth MD at [facility] Right: Shoulder [employer] 08/10/2026 [id number] / [id number] / [employer] [id number] Od25 Mm Full Wedge Augment Shoulder 15 D Baseplate Glenoid - [id number] - [id number] Implanted:Qty: 1 on 09/12/2021 by Gerardo Elizabeth MD at [facility] Right: Shoulder [employer] [id number] 06/05/2026 [id number] / [id number] / [employer] [id number] Tornier Aequalis Perform 36mm Reverse Shoulder Standard Sphere - [id number] - [id number] Implanted:Qty: 1 on 09/12/2021 by Gerardo Elizabeth MD at [facility] Right: Shoulder [employer] 07/25/2026 [id number] / [id number] / [employer] [id number] Aequalis Perform Reversed 5mm 30mm Peripheral Glenoid Screw - [id number] - [id number] Implanted:Qty: 1 on 09/12/2021 by Gerardo Elizabeth MD at [facility] Right: Shoulder [employer] [id number] / [id number] / [employer] [id number] Insert Perform 10 Deg [id number] - [id number] - [id number] Implanted:Qty: 1 on 09/12/2021 by Gerardo Elizabeth MD at [facility] Right: Shoulder [employer] 03/01/2026 [id number] / [id number] / [employer] [id number] Stem Perform Sz 3 Plus Humeral - [id number] Implanted:Qty: 1 on 09/12/2021 by Gerardo Elizabeth MD at [facility] Right: Shoulder [employer] 03/01/2026 [id number] / / Insurance MEDICARE AETNA SENIOR SUPPLEMENT MEDICARE AETNA Advance Directives For more information, please contact: [phone] Documents on File Type Date Recorded Patient Collections Professional Expl anation ADVANCE DIRECTIVE 11/27/2012 12:00 AM ELISABETH RAMIREZ ADVANCE DIRECTIVE 11/27/2012 12:00 AM POWER OF DURABLE MEDICAL EQUIPMENT TECHNICIAN FINANCIAL/MEDICAL * Full Code (Latest Code Status on File) Date Activated Date Inactivated Comments 09/12/2021 11:50 AM 09/13/2021 2:56 PM Care Teams Bath Attendant Relationship Specialty Start Date End Date Adalberto Luque DO PCP - General Internal Medicine 11/26/18
--- OUTSIDE RECORDS SUMMARY | 2024-10-14 16:50 | XMS_ITS | Encounter Summary ---
Author Organization [facility] Facility Care Team Providers Care Agile Project Manager Name Role Phone Adalberto Luque DO Primary Care Provider [phone] Encounter Details Date Type Department Care Team (Latest Contact Info) Description 09/08/2017 Orders Only [facility] CLINCONV ProviderDonta MD [address] [place] [address] Social History Tobacco Use Types Packs/Day Years Used Date Smoking Tobacco: Never Assessed Sex and Gender Information Value Date Recorded Sex Assigned at Not on file Legal Sex Male 2:12 AM TANDEM MILL OPERATOR Gender Identity Not on file Sexual Orientation Not on file documented as of this encounter Plan of Treatment Not on file documented as of this encounter Procedures Procedure Name Priority Date/Time Associated Diagnosis Comments PROCEDURE - RESULT 09/08/2017 12 :00 AM TANDEM MILL OPERATOR documented in this encounter Results * PROCEDURE - RESULT (09/08/2017 12:00 AM TANDEM MILL OPERATOR) Narrative 09/08/2017 12:00 AM TANDEM MILL OPERATOR Ordered by an unspecified provider. Historical Provider Final Res ult documented in this encounter Visit Diagnoses Not on filedocumented in this encounter Care Teams Agile Project Manager Relationship Specialty Start Date End Date Adalberto Luque DO PCP - General Internal Medicine 11/26/18 documented as of this encounter
--- OUTSIDE RECORDS SUMMARY | 2024-10-14 16:50 | XMS_ITS | Encounter Summary ---
Author Organization [facility] Address [address] [place] [address] Care Team Providers Care Chain Offbearer Name Role Phone Zachery Freire MD Unavailable Adalberto Luque DO Primary Care Provider [phone] Encounter Details Date Type Department Care Team (Late st Contact Info) Description 11/01/2021 Lab Requisition [facility] DermPath Lab [address] [place] [id number] Kg Herbert MD [address] [place] [address] Social History Tobacco Use Types Packs/Day Years [...] Priority Date/Time Associated Diagnosis Comments DERMATOPATHOLOGY Routine 10/31/2021 12:0 0 AM CDT documented in this encounter Results * DERMATOPATHOLOGY (10/31/2021 12:00 AM CDT) Case Report Dermatopathology Report Case: [id number] Authorizing Provider: Kg Herbert MD Collected: 10/31/2021 12:00 AM Ordering Location: [facility] DermPath Lab Received: 11/01/2021 01:40 PM Pathologist: Rachelle Mcdonald MD Specimens: A) - Skin, right zygoma B) - Skin, right cheek 1:15 PM T DERMATOPATHOLOGY LABORATORY Final Diagnosis Specimen A. SKIN, right zygoma: BASAL CELL CARCINOMA, NODULAR TYPE (C44.319) Specimen B. 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 The specimen consists of a shave biopsy measuring 4v2t6lx. Jar 0. Specimen B: Received is one formalin filled container labeled with the patient's name and designated right cheek. The specimen consists of a shave biopsy measuring 5c2v6wm. Jar 0. 1:15 PM CDT DERMATOPATHOLOGY LABORATORY Microscopic Description Specimen A. SKIN, right zygoma: Within the dermis there are aggregates of basaloid cells with a high nuclear to cytoplasmic ratio and peripheral palisading. Specimen B. SKIN, right cheek: The epidermis shows parakeratosis, full thickness disorderly maturation of keratinocytes, mitoses at different levels, and dyskeratotic cells. 1:15 PM CDT DERMATOPATHOLOGY LABORATORY Disclaimer An external and internal positive and negative controls are appropriate for the histochemical, immunohistochemical and immunofluorescence stain(s) in this case (if any), except where stated explicitly. The performance characteristics of the stain(s) cited in this report were developed and its performance characteristic determined by the Dermatopathology Laboratory at [facility], directed by Dr. Feliciano [place]. These tests need not be, and therefore are not, approved by the [place] Food and Drug Administration. The tests are used for clinical purposes. Billing Codes Specimen Charges Stain Charges 30998 19326 1 1 1:15 PM CDT DERMATOPATHOLOGY LABORATORY Embedded Images 1:15 PM CDT DERMATOPATHOLOGY LABORATORY Pathology/Cytology TISSUE SPECIMEN FROM SKIN / Unknown 10/31/2021 11/01/2021 1:40 PM CDT Miscellaneous samples (specimen) TISSUE SPECIMEN FROM SKIN / Unknown 10/31/2021 11/01/2021 1:40 PM CDT Kg Herbert MD LAB - PATHOLOGY/CYTO LOGY ORDERABLES DERMATOPATHOLOGY LABORATORY [facility] - Department of Dermatology [facility] Medicine [address] [place] [address], [address] [phone] documented in this encounter Visit Diagnoses Not on filedocumented in this encounter Care Teams Chain Offbearer Relationship Specialty Start Date End Date Adalberto Luque DO [address] [place] [address] PCP - General 04/10/18 [place] [address] [place] [id number] Orthopedic Surgery 03/16/13 documented as of this encounter
--- OUTSIDE RECORDS SUMMARY | 2024-10-14 16:50 | XMS_ITS | Encounter Summary ---
Author Organization [facility] Address [address] [place] [address] Care Team Providers Care Broke Handler Name Role Phone Zachery Freire MD Unavailable [phone] Adalberto Luque DO Primary Care Provider [phone] Encounter Details Date Type Department Care Team (Late st Contact Info) Description 06/09/2023 Lab Requisition [facility] - DermPath Lab [address] [place] [phone] Kg Herbert MD [address] [place] [address] Social History Tobacco Use Types Packs/Day Years [...] Priority Date/Time Associated Diagnosis Comments DERMATOPATHOLOGY Routine 06/04/2023 12:0 0 AM ENVIRONMENTAL RESEARCH SCIENTIST documented in this encounter Results * DERMATOPATHOLOGY (06/04/2023 12:00 AM ENVIRONMENTAL RESEARCH SCIENTIST) Case Report Dermatopathology Report Case: [id number] Authorizing Provider: Kg [place] MD Collected: 06/04/2023 12:00 AM Ordering Location: [facility] DermPath Lab Received: 06/09/2023 10:39 AM Pathologist: Navi [place] MD Specimen: Skin, left side upper nose 3:57 PM ENVIRONMENTAL RESEARCH SCIENTIST DERMATOPATHOLOGY LABORATORY Final Diagnosis Specimen A. SKIN, left side upper nose: BASAL CELL CARCINOMA, NODULAR TYPE (C44.311) 3:57 PM ENVIRONMENTAL RESEARCH SCIENTIST DERMATOPATHOLOGY LABORATORY Clinical History R/O BCC, SCC 3:57 PM ENVIRONMENTAL RESEARCH SCIENTIST DERMATOPATHOLOGY LABORATORY Gross Description Specimen A: Received is one formalin filled container labeled with the patient's name and designated left side upper nose. The specimen consists of a shave biopsy measuring 9x8x4 mm. Jar 0. 3:57 PM [facility] DERMATOPATHOLOGY LABORATORY Microscopic Description Specimen A. SKIN, left side upper nose: Within the dermis there are aggregates of basaloid cells with a high nuclear to cytoplasmic ratio and peripheral palisading. 3:57 PM ENVIRONMENTAL RESEARCH SCIENTIST DERMATOPATHOLOGY LABORATORY Disclaimer An external and internal positive and negative controls are appropriate for the histochemical, immunohistochemical and immunofluorescence stain(s) in this case (if any), except where stated explicitly. The performance characteristics of the stain(s) cited in this report were developed and its performance characteristic determined by the Dermatopathology Laboratory at [facility], directed by Dr. Feliciano [place]. These tests need not be, and therefore are not, approved by the [place] Food and Drug Administration. The tests are used for clinical purposes. Billing Codes Specimen Charges Stain Charges 67047 1 3:57 PM [facility] DERMATOPATHOLOGY LABORATORY Embedded Images 3:57 PM [facility] DERMATOPATHOLOGY LABORATORY Pathology/Cytolog y TISSUE SPECIMEN FROM SKIN / Unknown 06/04/2023 06/09/2023 10:39 AM [facility] Kg Herbert MD LAB - PATHOLOGY/CYTO LOGY ORDERABLES DERMATOPATHOLOGY LABORATORY [facility] - Department of Dermatology [address], [address] [phone] documented in this encounter Visit Diagnoses Not on filedocumented in this encounter Care Teams Broke Handler Relationship Specialty Start Date End Date Adalberto Luque DO [address] [place] [address] PCP - General 04/10/18 [place] [address] [place] [id number] Orthopedic Surgery 03/16/13 documented as of this encounter
--- OUTSIDE RECORDS SUMMARY | 2024-10-14 16:50 | XMS_ITS | Encounter Summary ---
Author Organization [facility] Address [address] [place] [address] Care Team Providers Care Oil Well Service Operator Name Role Phone Zachery Freire MD Unavailable [phone] Adalberto Luque DO Primary Care Provider [phone] Encounter Details Date Type Department Care Team (Late st Contact Info) Description 12/22/2020 Lab Requisition [facility] DermPath Lab [address] [place] [phone] Kg Herbert MD [address] [place] [address] Social History Tobacco Use Types Packs/Day Years [...] Priority Date/Time Associated Diagnosis Comments DERMATOPATHOLOGY Routine 12/20/2020 3:33 AM CDT documented in this encounter Results * DERMATOPATHOLOGY (12/20/2020 3:33 AM CDT) Case Report Dermatopathology Report Case: [id number] Authorizing Provider: Kg [place] MD Collected: 12/20/2020 03:33 AM Ordering Location: [facility] DermPath Lab Received: 12/22/2020 05:42 AM Pathologist: Navi [place] MD Specimens: A) - Skin, left side neck B) - Skin, left cheek ant to earlobe 1:15 PM CDT DERMATOPATHOLOGY LABORATORY Final Diagnosis Specimen A. SKIN, left side neck: BASAL CELL CARCINOMA, NODULAR TYPE (C44.41) Specimen B. SKIN, left cheek ant to earlobe: BASAL CELL CARCINOMA, NODULAR TYPE (C44.319) 1:15 PM CDT DERMATOPATHOLOGY LABORATORY Clinical History A-B: R/O BCC. 1:15 PM CDT DERMATOPATHOLOGY LABORATORY Gross Description Specimen A: Received is one formalin filled container labeled with the patient's name and designated left side neck. The specimen consists of a curettage and desiccation biopsy measuring 53z13p6tu. Jar 0. Specimen B: Received is one formalin filled container labeled with the patient's name and designated left cheek ant to earlobe. The specimen consists of a curettage and desiccation biopsy measuring 96y61x0id. Jar 0. 1:15 PM CDT DERMATOPATHOLOGY LABORATORY Microscopic Description Specimen A. SKIN, left side neck: Within the dermis there are aggregates of basaloid cells with a high nuclear to cytoplasmic ratio and peripheral palisading. Specimen B. SKIN, left cheek ant to earlobe: Within the dermis there are aggregates of basaloid cells with a high nuclear to cytoplasmic ratio and peripheral palisading. 1:15 PM CDT DERMATOPATHOLOGY LABORATORY Disclaimer An external and internal positive and negative controls are appropriate for the histochemical, immunohistochemical and immunofluorescence stain(s) in this case (if any), except where stated explicitly. The performance characteristics of the stain(s) cited in this report were developed and its performance characteristic determined by the Dermatopathology Laboratory at [facility], directed by Dr. Feliciano [place]. These tests need not be, and therefore are not, approved by the [place] Food and Drug Administration. The tests are used for clinical purposes. Billing Codes Specimen Charges Stain Charges 95165 13063 1 1 1 1:15 PM CDT DERMATOPATHOLOGY LABORATORY Embedded Images 1:15 PM CDT DERMATOPATHOLOGY LABORATORY Pathology/Cytology TISSUE SPECIMEN FROM SKIN / Unknown 12/20/2020 3:33 AM CDT 12/22/2020 5:42 AM CDT Miscellaneous samples (specimen) TISSUE SPECIMEN FROM SKIN / Unknown 12/20/2020 3:33 AM CDT 12/22/2020 5:42 AM CDT Kg Herbert MD LAB - PATHOLOGY/CYTO LOGY ORDERABLES DERMATOPATHOLOGY LABORATORY [facility] - Department of Dermatology [facility] Medicine [address] [place] [address], [address] [phone] documented in this encounter Visit Diagnoses Not on filedocumented in this encounter Care Teams Oil Well Service Operator Relationship Specialty Start Date End Date Adalberto Luque DO [address] [place], [place] [id number] PCP - General 04/10/18 [place] [address] [place] [id number] Orthopedic Surgery 03/16/13 documented as of this encounter
--- OUTSIDE RECORDS SUMMARY | 2024-10-14 16:50 | XMS_ITS | Clinical Summary ---
Author Organization [facility] Address [address] [place] [address] Care Team Providers Care Catalog Specialist Name Role Phone Zachery Freire MD Unavailable [phone] Adalberto Luque DO Primary Care Provider [phone] Source Comments [facility],non-owned Affiliates and Associated Physician Practices is amultiple site organization consisting of ambulatory clinics and hospital sitesin [place], [place], [place] and [place]. This disclosure is being madepursuant to the Care Everywhere program and may not contain all information available regarding this patient. Last updated 18.[facility] Allergies No known active allergies Medications * Be aware that medications may not be up to date on this document. Alwaysverify current medications with the patient. Medication Sig Dispensed Refills Start Date End Date Status atorvastatin (LIPITOR) 10 MG tablet Take 10 mg by mouth at bedtime. Active fluticasone propionate (FLONASE) 50 MCG/ACT nasal spray Hydes 2 sprays into each nostril as needed Active Multiple Vitamins-Minerals (MULTIVITAMIN ADULT PO) Take 1 tablet by mouth once daily Active sertraline (ZOLOFT) 100 MG tablet Take 100 mg by mouth once daily 02/28/2017 Active flurandrenolide (CORDRAN) 0.05 % creamIndications:Cesar h and other nonspecific skin eruption Apply to affected area on right jawline twice daily for 2 weeks. 10 g 08/14/2018 Active Additional Information Patient not taking.Reported on 10/09/2018 triamcinolone acetonide (KENALOG) 0.1 % ointmentIndications: Rash and other nonspecific skin eruption Apply to rash on arms and legs twice daily. 30 days supply. 80 g 04/07/2019 Active Additional Information Patient not taking.Reported on 06/21/2019 fluocinonide (LIDEX) 0.05 % creamIndications:Cesar h and other nonspecific skin eruption Apply to rash on arms and left lower leg twice daily 30 days supply. 60 g 1 06/23/2019 Active fluorouracil (EFUDEX) 5 % cream Apply to affected areas on arms and back of hands twice daily for two weeks 40 g 08/16/2019 Active Active Problems Problem Noted Date Diagnosed Date History of basal cell carcinoma (BCC) of skin History of squamous cell carcinoma of skin 10/09 Dry eyes, bilateral 11/09/2016 Sinusitis, chronic 10/31/2016 History of nonmelanoma skin cancer 09/25/2016 Basal cell carcinoma of helix 08/20/2013 Knee joint replacement by other means 03/16/2013 Resolved Problems Problem Noted Date Diagnosed Date Resolved Date Cough 11/09/2016 05/08/2018 Immunizations Name Administration Dates Next Due INFLUENZA VACCINE, HIGH-DOSE , QUADR. (FLUZONE HIGH-DOSE QUADRIVALENT; 65Y+), 0.7 ML (HD-IIV4) 05/25/2019 INFLUENZA VACCINE, QUADR. (F LUZONE; FLULAVAL; FLUARIX; AFLURIA QUADRIVALENT; 6MO+), 0.5 ML (IIV4) 05/29/1998,05/03/1997,05/13/1996,1994 TDAP (7yrs+) 04/13/2019 Zoster Hzv Vacc Recombinant Inj Im 03/06/2019, Family History Medical History Relation Name Comments Asthma Neg Hx CVA Neg Hx Cancer - Breast Neg Hx Cancer - Other Neg Hx Cancer - Skin, Melanoma Neg Hx Cancer - Skin, Non Melanoma Neg Hx Eczema Neg Hx Hemophilia Neg Hx Psoriasis Neg Hx Social History Tobacco Use Types [...] Sign Reading Time Taken Comments Blood Pressure 165/81 04/22/2017 11:42 AM CDT Pulse 55 04/22/2017 11:42 AM CDT Temperature - - Respiratory Rate - - Oxygen Saturation 95% 04/22/2017 11:42 AM CDT Inhaled Oxygen Concentration - - Weight 77.1 kg (170 lb) 04/22/2017 8:01 AM CDT Height 172.7 cm (5' 8 ) 04/22/2017 8:01 AM CDT Body Mass Index 25.85 04/22/2017 8:01 AM CDT Plan of Treatment Health Maintenance Due Date Last Done Comments MEDICARE AWV 12 MONTHS 1935 PNEUMOCOCCAL VACCINE 50+ (1 of 1 - PCV) 1985 Respiratory Syncytial Virus (RSV) Vaccine Pt: or over 60 yrs (1 - 1-dose 75+ series) 2010 COVID-19 VACCINE ( - 2023- season) 2024 INFLUENZA VACCINE (#1) 2024 9, 04/10/2018, 04/06/2017, Additional history exists DEPRESSION SCREENING 07/28/2024 DTAP/TDAP/TD VACCINES (2 - Td or Tdap) 04/13/2029 04/13/2019 ZOSTER VACCINE Completed 03/06/2019, 11/26/2018 HEPATITIS B VACCINE Aged Out No longe r eligible based on patient's age to complete this topic HIB VACCINE Aged Out No longer eligi ble based on patient's age to complete this topic HPV VACCINE Aged Out No longer eligi ble based on patient's age to complete this topic MENINGOCOCCAL (Group B) VACCINE SHARED DECISION-MAKING Aged Out No longer eligible based on patient's age to complete this topic MENINGOCOCCAL GROUPS A/C/Y/W VACCINE Aged Out No longer eligible based on patient's age to complete this topic Care Teams Catalog Specialist Relationship Specialty Start Date End Date Adalberto Luque DO [address] [place] [address] PCP - General 04/10/18 [place] [address] [place] [id number] Orthopedic Surgery 03/16/13
[2024-10-14 17:25] VITALS: BP 172/63; PULSE 60; RESP 16; TEMP 36.4; O2SAT 97
--- NOTE | 2024-10-14 17:31 | ED.HEATRA ---
HPI - Head Injury General Chief complaint: Head Injury <ANNA Daigle Last Filed: 10/14/24 17:36> Stated complaint: Fell in parking lot-head injury <ANNA Daigle Last Filed: 10/14/24 17:36> Time Seen by Provider: 10/14/24 17:30 <ANNA Daigle Last Filed: 10/14/24 17:36> Focused HPI: Patient is an 89-year-old male who presents the ED with report of a fall. Patient reports he was on his way to the hospital today to subtle an outstanding medical bill when he tripped in the parking lot. Denies feeling dizzy or lightheaded prior to the fall. He did hit his head. Denies LOC. sustained injury to his right periorbital region, nose, upper lip, right hand. Had epistaxis, which has since resolved. Sustained laceration to outer edge of the base of his right pinky. Tetanus unknown. Patient denies neck or back pain. Denies vision changes, current dizziness. Denies chest pain, abdominal pain, SOB. GENERAL: Elderly, well-nourished, and in no acute distress. HEAD/EENT: Normocephalic. Contusion to right eyebrow with swelling and bruising, small abrasion. Mild swelling noted to bridge of nose, dried blood around nares. No active epistaxis. Abrasion to upper lip. No malocclusion or trismus. CHEST: Clear to auscultation. ?No respiratory distress. HEART: Regular rate and rhythm.? MSK: No tenderness to palpation throughout cervical, thoracic, lumbar midline spine. No chest wall tenderness to palpation. SKIN: Skin tear/avulsion to lateral edge of R 5th MCP region. No active bleeding. NEURO: ?Alert and oriented x3. No focal deficits. Patient screened in triage and initial orders placed.? ?Additional care and disposition to be based upon?diagnostic testing and treatment. <ANNA Daigle Last Filed: 10/14/24 17:36> Source: patient <ANNA Daigle Last Filed: 10/14/24 17:36> Mode of arrival: ambulatory <Disha Patton PA-C - Last Filed: 10/14/24 17:36> Limitations: no limitations <Disha Patton PA-C - Last Filed: 10/14/24 17:36> History of Present Illness HPI Narrative: Agree with HPI. <William Singh MD - Last Filed: 10/14/24 21:00> Related Data Home medications: Home Medications ?Medication ?Instructions ?Recorded ?Confirmed ?Last Taken ?Type acetaminophen 500 mg tablet 500 mg PO Q4-6H PRN Pain 08/23/20 08/03/24 Unknown History (Tylenol Extra Strength) cholecalciferol (vitamin D3) 25 25 mcg PO DAILY 04/22/24 08/03/24 06/22/24 History mcg (1,000 unit) capsule sertraline 100 mg tablet 100 mg PO HS 06/22/24 08/03/24 06/21/24 History <Disha Patton PA-C - Last Filed: 10/14/24 17:36> Allergies/Adverse reactions: Allergies Allergy/AdvReac Type Severity Reaction Status Date / Time betamethasone Allergy Intermediate Skin Verified 10/14/24 16:49 reactions <Disha Patton PA-C - Last Filed: 10/14/24 17:36> Review of Systems Constitutional: Constitutional: Reports no additional constitutional complaints <William Singh MD - Last Filed: 10/14/24 21:00> Cardiovascular: Cardiovascular: Reports no additional cardiovascular complaints <William Singh MD - Last Filed: 10/14/24 21:00> Respiratory: Respiratory: Reports no additional respiratory complaints <William Singh MD - Last Filed: 10/14/24 21:00> Integumentary/Breasts: Skin/Breast: Reports system reviewed and no additional complaints, except as docu <William Singh MD - Last Filed: 10/14/24 21:00> Neurologic: Reports system reviewed and no additional complaints, except as documented <William Singh MD - Last Filed: 10/14/24 21:00> [facility] Past Medical History Medical History: Medical History 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 Cough Diverticular disease of colon Diverticulosis large intestine w/o perforation or abscess w/bleeding (03/05/19) Family history of other specified malignant neoplasm Hypercholesterolemia Hypertension Impotence Major depressive disorder, single episode, 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) Memory loss Radicular pain Seasonal allergic rhinitis <Disha Patton PA-C - Last Filed: 10/14/24 17:36> Surgical History Surgical History: Surgical History History of orthopedic surgery <ANNA Daigle Last Filed: 10/14/24 17:36> Family History Family History: Family History Father Family history of malignant neoplasm, Onset Age: 55 Mother Family history of Alzheimer's disease, Onset Age: 88 <ANNA Daigle Last Filed: 10/14/24 17:36> Social History Social History: Social History Smoking packs per day: 1 Smoking cigarettes per day: 20.0 Years smoked: 15 Smoking pack-years: 15.00 Smoking status: Former smoker Tobacco type: cigarettes Smoking end date: 07/28/1967 Additional smoking assessment comments: quit smoking 46 years Alcohol intake: current Drinks per week: 3 Alcohol use details: social Substance use: never Substance use type: does not use Do You Feel Safe in your Home?: Yes Lack of Transportation: No Lack of Food: Never True Current Housing: I Have Housing Concerned About Future Housing: No Difficulty Paying Gas/Electric Bills: No Difficulty Paying for Meds: No Currently Unemployed: No Education: Trade/Vocational Certificate Difficulty w/ Childcare or Family Care: No Gender identity (if verbalized by the patient): Male Spiritual care concerns: No <ANNA Daigle Last Filed: 10/14/24 17:36> Exam Narrative: GENERAL: Elderly-appearing, well-nourished, and in no acute distress. HEAD: Normocephalic, abrasions swelling to bobby orbital region the right eye. Eyes: PERRLA, EOMI, mild scleral injection lateral right eye. ENT: Mucous membranes moist. Black abrasion right inter 8. Abrasion right upper lip. CHEST: Clear to auscultation. No respiratory distress. HEART: Regular rate and rhythm. Normal peripheral pulses. ABDOMEN: Soft, nontender, nondistended EXTREMITIES: Normal range of motion. No edema. SKIN: Warm, dry, no rash. Skin avulsion 5th MCP lateral aspect. No tendon or lesions identified in a bloodless field. Small piece of asphalt removed from the area and irrigated. NEURO: Alert and oriented x3. <William Singh MD - Last Filed: 10/14/24 21:00> Course Course Emergency Course: Foreign body removed from right hand. Repaired. Tetanus up-to-date in 2020. Appropriate for discharge home. Discussed imaging. <William Singh MD - Last Filed: 10/14/24 21:00> Vital Signs Vital signs: Vital Signs Temperature 97.6 F 10/14/24 17:25 Pulse Rate 60 10/14/24 17:25 Respiratory Rate 16 10/14/24 17:25 Blood Pressure 172/63 H 10/14/24 17:25 Pulse Oximetry 97 10/14/24 17:25 Oxygen Delivery Room Air 10/14/24 17:25 Temperature 97.6 F 10/14/24 17:25 Pulse Rate 58 L 10/14/24 20:04 Respiratory Rate 15 10/14/24 20:04 Blood Pressure 164/54 H 10/14/24 20:04 Pulse Oximetry 99 10/14/24 20:04 Oxygen Delivery Room Air 10/14/24 17:25 <Disha Patton PA-C - Last Filed: 10/14/24 17:36> Vital Signs Temperature 97.6 F 10/14/24 17:25 Pulse Rate 60 10/14/24 17:25 Respiratory Rate 16 10/14/24 17:25 Blood Pressure 172/63 H 10/14/24 17:25 Pulse Oximetry 97 10/14/24 17:25 Oxygen Delivery Room Air 10/14/24 17:25 Temperature 97.6 F 10/14/24 17:25 Pulse Rate 58 L 10/14/24 20:04 Respiratory Rate 15 10/14/24 20:04 Blood Pressure 164/54 H 0320/25 20:04 Pulse Oximetry 99 10/14/24 20:04 Oxygen Delivery Room Air 10/14/24 17:25 <William Singh MD - Last Filed: 10/14/24 21:00> Procedures Laceration Laceration 1: Date: 10/14/24 <William Singh MD - Last Filed: 10/14/24 21:00> Time: 20:45 <William Singh MD - Last Filed: 10/14/24 21:00> Site: other (hand) <William Singh MD - Last Filed: 10/14/24 21:00> Side (If applicable): right <William Singh MD - Last Filed: 10/14/24 21:00> Size (cm): 1.5 <William Singh MD - Last Filed: 10/14/24 21:00> Description: flap <William Singh MD - Last Filed: 10/14/24 21:00> Local Anesthetic: lidocaine 1% and with epi <William Singh MD - Last Filed: 10/14/24 21:00> Amount of anesthesia used (mL): 1.5 <William Singh MD - Last Filed: 10/14/24 21:00> Pre-repair: irrigated extensively and minor debridement <William Singh MD - Last Filed: 10/14/24 21:00> ====== Skin Level ======: Skin layer closed with: nylon <William Singh MD - Last Filed: 10/14/24 21:00> Size (cm): 5-0 <William Singh MD - Last Filed: 10/14/24 21:00> Number of sutures: 3 <William Singh MD - Last Filed: 10/14/24 21:00> Technique: simple, interrupted <William Singh MD - Last Filed: 10/14/24 21:00> ====== Subcutaneous Layer ======: ====== Muscle Layer ======: ====== Tendon Layer ======: MDM - Head Injury MDM Narrative Medical decision making narrative: MSE by SABINO in triage. <Disha aPtton PA-C - Last Filed: 10/14/24 17:36> Imaging Data Radiologist's impression: ITS Impressions Head CT 10/14/24 18:27 Impression: No acute intracranial hemorrhage or suspicious mass effect. Hand X-Ray 10/14/24 18:31 IMPRESSION: Radiopaque foreign body within the soft tissues lateral to the fifth metacarpal phalangeal joint space. Otherwise stable radiographic evaluation of the right hand, when compared with previous study performed 12/13/2021. No acute fracture or dislocation is appreciated. Head/Cervical Spine/Facial Bones CT 10/14/24 19:29 Impression: Severe degenerative disease. No acute fracture within the cervical spine or the facial bones. <William Singh MD - Last Filed: 10/14/24 21:00> Discharge Plan Discharge Clinical Impression: Hand laceration, Abrasion of lip, Abrasion of right eyebrow <Disha Patton PA-C - Last Filed: 10/14/24 17:36> Patient Disposition: Home, Self-Care <Disha Patton PA-C - Last Filed: 10/14/24 17:36> Condition: Stable <Disha Patton PA-C - Last Filed: 10/14/24 17:36> Instructions: Care For Your Stitches (ED), Black Eye (ED) <Disha Patton PA-C - Last Filed: 10/14/24 17:36> Additional Instructions: You will need your sutures removed in approximately 10 days. Follow-up with your primary care physician prior. Return ER if you suffered additional fall, you have new confusion, or you have additional concerns. <Disha Patton PA-C - Last Filed: 10/14/24 17:36> Patient Language: Kiswahili <Disha Patton PA-C - Last Filed: 10/14/24 17:36> Prescriptions: No Action atorvastatin 20 mg tablet 20 mg PO DAILY Qty: 90 0RF lisinopril 5 mg tablet 5 mg PO DAILY Qty: 90 0RF acetaminophen [Tylenol Extra Strength] 500 mg tablet 500 mg PO Q4-6H PRN (Reason: Pain) cholecalciferol (vitamin D3) 25 mcg (1,000 unit) capsule 25 mcg PO DAILY cetirizine [Allergy Relief (cetirizine)] 10 mg tablet 10 mg PO DAILY Qty: 90 1RF fluticasone propionate 50 mcg/actuation spray,suspension 2 spray NASAL DAILY Qty: 16 3RF Rx Instructions: administer into each nostril sertraline 100 mg tablet 100 mg PO HS <Disha Patton PA-C - Last Filed: 10/14/24 17:36> Follow-up/Referrals: Amirah Vizcaino APRN [Primary Care Provider] - 1 Week <Disha Patton PA-C - Last Filed: 10/14/24 17:36>
[2024-10-14 20:04] VITALS: BP 164/54; PULSE 58; RESP 15; O2SAT 99
--- OUTSIDE RECORDS SUMMARY | 2024-10-14 20:06 | XMS_ITS | Clinical Summary ---
Author Organization [facility] Address [address] [place] [address] Care Team Providers Care Associate Media Planner Name Role Phone Zachery Freire MD Unavailable Adalberto Luque DO Primary Care Provider [phone] Source Comments [facility],non-owned Affiliates and Associated Physician Practices is amultiple site organization consisting of ambulatory clinics and hospital sitesin [place], [place], [place] and [place]. This disclosure is being madepursuant to the Care Everywhere program and may not contain all information available regarding this patient. Last updated 18.[facility] Allergies No known active allergies Medications * Be aware that medications may not be up to date on this document. Alwaysverify current medications with the patient. Medication Sig Dispensed Refills Start Date End Date Status atorvastatin (LIPITOR) 10 MG tablet Take 10 mg by mouth at bedtime. Active fluticasone propionate (FLONASE) 50 MCG/ACT nasal spray [place] 2 sprays into each nostril as needed [...] age to complete this topic Care Teams Associate Media Planner Relationship Specialty Start Date End Date Adalberto Luque DO [address] [place] [address] PCP - General 04/10/18 [place] [address] [place] [id number] Orthopedic Surgery 03/16/13
--- OUTSIDE RECORDS SUMMARY | 2024-10-14 20:06 | XMS_ITS | Encounter Summary ---
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 Historical Provider Final Res ult documented in this encounter Visit Diagnoses Not on filedocumented in this encounter Care Teams Prevention Specialist Relationship Specialty Start Date End Date Adalberto Luque DO PCP - General Internal Medicine 11/26/18 documented as of this encounter
--- OUTSIDE RECORDS SUMMARY | 2024-10-14 20:06 | XMS_ITS | Encounter Summary ---
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 Historical Provider Final Res ult documented in this encounter Visit Diagnoses Not on filedocumented in this encounter Care Teams Hand Brush Filler Relationship Specialty Start Date End Date Adalberto Luque DO PCP - General Internal Medicine 11/26/18 documented as of this encounter
--- OUTSIDE RECORDS SUMMARY | 2024-10-14 20:06 | XMS_ITS | Encounter Summary ---
Author Organization [facility] Address [address] [place] [address] Care Team Providers Care Core Sticker Name Role Phone Zachery Freire MD Unavailable [phone] Adalberto Luque DO Primary Care Provider [phone] Encounter Details Date Type Department Care Team (Late st Contact Info) Description 12/22/2020 Lab Requisition [facility] DermPath Lab [address] [place] [id number] Kg Herbert MD [address] [place] [address] Social History Tobacco Use Types Packs/Day Years [...] AM CDT) Case Report Dermatopathology Report Case: [id number] Authorizing Provider: Kg Herbert MD Collected: 12/20/2020 03:33 AM Ordering Location: [facility] DermPath Lab Received: 12/22/2020 05:42 AM Pathologist: [...] of a curettage and desiccation biopsy measuring [id number]. Jar 0. Specimen B: Received is one formalin filled container labeled with the patient's name and designated left cheek ant to earlobe. The specimen consists of a curettage and desiccation biopsy measuring [id number]. Jar 0. 1:15 PM CDT DERMATOPATHOLOGY LABORATORY [...] characteristic determined by the Dermatopathology Laboratory at [facility], directed by Dr. Feliciano Buckner. These tests need not be, and therefore are not, approved by the [place] Food and Drug Administration. The tests are used for clinical purposes. Billing Codes Specimen Charges Stain Charges 95305 08419 1 1 1 1:15 PM CDT DERMATOPATHOLOGY LABORATORY Embedded Images 1:15 PM CDT DERMATOPATHOLOGY LABORATORY Pathology/Cytology TISSUE SPECIMEN FROM SKIN / Unknown 12/20/2020 3:33 AM CDT 12/22/2020 5:42 AM CDT Miscellaneous samples (specimen) TISSUE SPECIMEN FROM SKIN / Unknown 12/20/2020 3:33 AM CDT 12/22/2020 5:42 AM CDT Kg Herbert MD LAB - PATHOLOGY/CYTO LOGY ORDERABLES DERMATOPATHOLOGY LABORATORY [facility] - Department of Dermatology [facility] Medicine [address] [place] [address], [address] [phone] documented in this encounter Visit Diagnoses Not on filedocumented in this encounter Care Teams Core Sticker Relationship Specialty Start Date End Date Adalberto Luque DO [address] [place], [place] [id number] PCP - General 04/10/18 [place] [address] [place] [id number] Orthopedic Surgery 03/16/13 documented as of this encounter
--- OUTSIDE RECORDS SUMMARY | 2024-10-14 20:06 | XMS_ITS | Encounter Summary ---
Author Organization [facility] Address [address] [place] [address] Care Team Providers Care Stummel Selector Name Role Phone Zachery Freire MD Unavailable [phone] Adalberto Luque DO Primary Care Provider [phone] Encounter Details Date Type Department Care Team (Late st Contact Info) Description 06/07/2020 Lab Requisition [facility] DermPath Lab [address] [place] [id number] [place] [address] Social History Tobacco Use Types Packs/Day Years [...] Comments DERMATOPATHOLOGY Routine 06/06/2020 12:0 0 AM MATERIAL FLOW ANALYST documented in this encounter Results * DERMATOPATHOLOGY (06/06/2020 12:00 AM MATERIAL FLOW ANALYST) Case Report Dermatopathology Report Case: [id number] Authorizing Provider: Kg Herbert MD Collected: 06/06/2020 12:00 AM Ordering Location: [facility] DermPath Lab Received: 06/07/2020 12:07 PM Pathologist: Navi Buckner MD Specimen: Skin, left lat scientologist 0 5:56 PM MATERIAL FLOW ANALYST DERMATOPATHOLOGY LABORATORY Final Diagnosis Specimen A. SKIN, left lat scientologist: HEALING SKIN CHANGES (L90.5) PRESENT AT MARGIN 0 5:56 PM MATERIAL FLOW ANALYST DERMATOPATHOLOGY LABORATORY Clinical History Bx proven BCC nodular type. Previous Bx: [id number]. 0 5:56 PM MATERIAL FLOW ANALYST DERMATOPATHOLOGY LABORATORY Gross Description Specimen A: Received is one formalin filled container labeled with the patient's name and designated left lat scientologist. The specimen consists of a curettage and desiccation biopsy measuring [id number]. Jar 0. 0 5:56 PM [facility] DERMATOPATHOLOGY LABORATORY Microscopic Description Specimen A. SKIN, left lat scientologist: There is epidermal hyperplasia beneath which there are vascular proliferation, fibroblasts, and an edematous stroma. This lesion is present at the margin of the specimen. 0 5:56 PM MATERIAL FLOW ANALYST DERMATOPATHOLOGY LABORATORY Disclaimer An external and internal positive and negative controls are appropriate for the histochemical, immunohistochemical and immunofluorescence stain(s) in this case (if any), except where stated explicitly. The performance characteristics of the stain(s) cited in this report were developed and its performance characteristic determined by the Dermatopathology Laboratory at [facility], directed by Dr. Feliciano Buckner. These tests need not be, and therefore are not, approved by the [place] Food and Drug Administration. The tests are used for clinical purposes. Billing Codes Specimen Charges Stain Charges 53025 1 0 5:56 PM MATERIAL FLOW ANALYST DERMATOPATHOLOGY LABORATORY Embedded Images 0 5:56 PM MATERIAL FLOW ANALYST DERMATOPATHOLOGY LABORATORY Pathology/Cytolog y TISSUE SPECIMEN FROM SKIN / Unknown 06/06/2020 06/07/2020 12:07 PM [facility] Kg Herbert MD LAB - PATHOLOGY/CYTO LOGY ORDERABLES DERMATOPATHOLOGY LABORATORY [facility] - Department of Dermatology [address], [address] [phone] documented in this encounter Visit Diagnoses Not on filedocumented in this encounter Care Teams Stummel Selector Relationship Specialty Start Date End Date Adalberto Luque DO [address] [place] [address] PCP - General 04/10/18 [place] [address] [place] [id number] Orthopedic Surgery 03/16/13 documented as of this encounter
--- OUTSIDE RECORDS SUMMARY | 2024-10-14 20:06 | XMS_ITS | Continuity of Care Document ---
Author Organization [facility] Address [address] [facility] utijose [address] [place] [address] Phone Care Team Providers Care Applications Scientist Name Role Phone Valente Mcdaniel Unavailable Unavailable [...] Diagnoses Date Provider Providers Copied on Encounter [facility], [address] [place] [address] [address], [place], [place], [id number], tel:[phone] [facility] No Information 2-200 8 Violeta Victor. [address] , [address], [place], [address], [place]. tel:[phone] Referring Provider: Javad Solis, [address] [facility], [place], [address]. tel:[phone] [facility], [address], [place], [place], [id number], tel:[phone] [facility] No Information Oct-2 4-200 8 Doisy Edward. [address] , [address], [place], [place], [facility], [place]. tel:[phone] Referring Provider: Javad Solis, [address] [facility], [place], [address]. tel:[phone] [facility], [address] [place] [address] [address], [place], [place], [id number], tel:[phone] [facility] No Information Oct- 6-200 8 Doisy Edward. [address] [facility] , [address], [place], [place], [facility], [place]. tel:[phone] Referring Provider: Javad Solis, [address] [facility], [place], [address]. tel:[phone] [facility], [address] [place] [address] [address], [place], [place], [id number], tel:[phone] [facility] No Information Oct-1 5-200 8 Doisy Edward. [address] [facility] , [address], [place], [facility], [place]. tel:[phone] Referring Provider: Javad Solis, [address] [facility], [place], [address]. tel:[phone] [facility], [address], [place], [place], [address], [place] tel:[phone] [facility] No Information Sep- 0-200 8 Doisy Edward. [address] [facility] , [address], [place], [facility], [place]. tel:[phone] Referring Provider: Javad Solis, [address] [facility], [place], [address]. tel:[phone] [facility], [address], [place], [place], [address], tel:[phone] [facility] No Information Sep- 2-200 8 Garo Payton. [address] [facility] [place] [address], [place], [facility], . tel:[phone] Referring Provider: Javad Solis, [address] [facility], [place], [address]. tel:[phone] [facility], [address] [place], [place] [address]te [address], [place], [id number], tel:[phone] [facility] No Information Sep- 2-200 8 Violeta Edligia. [address] [facility] , [address], [place], [facility], . tel:[phone] Referring Provider: Javad Solis, [address] [facility], [place], [address]. tel:[phone] Office Consultation [facility], [address] [place], [place] [address]te [address], [place], [address], tel:[phone] [facility] No Information 0-200 8 Violeta Victor. [facility] , [address], [place], [facility], . tel:[phone] Referring Provider: Javad Solis, [address] [facility], [place], [address]. tel:[phone] Family History Family Member Type Diagnosis Age At Onset No Information Payers Payer name Insurance type Covered constitution party ID Authoriza tion(s) No Information Social [...]
--- OUTSIDE RECORDS SUMMARY | 2024-10-14 20:06 | XMS_ITS | Clinical Summary ---
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 Family History Medical [...] on file Legal Sex Male 2:12 AM STEM CUTTER Gender Identity Not on file Sexual Orientation Not on file Obstetrics History Last Filed Vital Signs Vital Sign Reading Time Taken Comments Blood Pressure 141/65 09/13/2021 9:45 AM STEM CUTTER Pulse 71 09/13/2021 9:45 AM STEM CUTTER Temperature 36.7 C (98 F) 09/13/2021 9:45 AM STEM CUTTER Respiratory Rate 18 09/13/2021 9:45 AM STEM CUTTER Oxygen Saturation 91% 09/13/2021 9:45 AM STEM CUTTER Inhaled Oxygen Concentration - - Weight 77.1 [...] 03/06/2019, 11/26/2018 Medical Devices Implanted Type Area Improvement Nurse Device Identifier Shelf Expiration Date Model / Serial / Lot Tornier Inc [id number] Aequalis Perform Reversed Od5 Mm L46 Mm Peripheral Glenoid Screw Baseplate Nonsterile - [id number] - [id number] Implanted:Qty: 1 on 09/12/2021 by Gerardo Elizabeth MD at [facility] Screw Right: Shoulder [employer] [id number] / [id number] / Nelson Knees Knee Tornier Inc [id number] Tornier Aequalis Perform 15mm Press Fit Long Post Shoulder - [id number] - [id number] Implanted:Qty: 1 on 09/12/2021 by Gerardo Elizabeth MD at [facility] Right: Shoulder [employer] 08/10/2026 [id number] / [id number] / Tornier Inc [id number] Od25 Mm Full Wedge Augment Shoulder 15 D Baseplate Glenoid - [id number] - [id number] Implanted:Qty: 1 on 09/12/2021 by Gerardo Elizabeth MD at [facility] Right: Shoulder [email or web address] Inc [id number] 06/05/2026 FAH137 / [id number] / Tornier Inc [id number] Tornier Aequalis Perform 36mm Reverse Shoulder Standard Sphere - [id number] - [id number] Implanted:Qty: 1 on 09/12/2021 by Gerardo Elizabeth MD at [facility] Right: Shoulder [email or web address] Inc 07/25/2026 BEU474 / [id number] / Tornier Inc [id number] Aequalis Perform Reversed 5mm 30mm Peripheral Glenoid Screw - [id number] - [id number] Implanted:Qty: 1 on 09/12/2021 by Gerardo Elizabeth MD at [facility] Right: Shoulder [employer] INO907 / [id number] / [employer] [id number] Insert Perform 10 Deg [id number] - [id number] - [id number] Implanted:Qty: 1 on 09/12/2021 by Gerardo Elizabeth MD at [facility] Right: Shoulder [email or web address] Inc 03/01/2026 [id number] / [id number] / [employer] Dwx3ps Stem Perform Sz 3 Plus Humeral - [id number] Implanted:Qty: 1 on 09/12/2021 by Gerardo Elizabeth MD at [facility] Right: Shoulder [email or web address] Inc 03/01/2026 [id number] / / Insurance MEDICARE AETNA SENIOR SUPPLEMENT MEDICARE AETNA Advance Directives For more information, please contact: [phone] Documents on File Type Date Recorded Patient Insole Tacker Expl anation ADVANCE DIRECTIVE 11/27/2012 12:00 AM ELISABETH RAMIREZ ADVANCE DIRECTIVE 11/27/2012 12:00 AM POWER OF BILINGUAL RECEPTIONIST FINANCIAL/MEDICAL * Full Code (Latest Code Status on File) Date Activated Date Inactivated Comments 09/12/2021 11:50 AM 09/13/2021 2:56 PM Care Teams Manufacturing Engineering Manager Relationship Specialty Start Date End Date Adalberto Luque DO PCP - General Internal Medicine 11/26/18
--- OUTSIDE RECORDS SUMMARY | 2024-10-14 20:06 | XMS_ITS | Clinical Summary ---
Author Organization [facility] Address [address] [place] [address] Care Team Providers Care Stainless Steel Finisher Name Role Phone Unavailable Primary Care Provider [...]
--- OUTSIDE RECORDS SUMMARY | 2024-10-14 20:06 | XMS_ITS | Encounter Summary ---
Author Organization [facility] Health Address [address] [facility] [place] [address] Care Team Providers Care Facilities Plant Engineer Name Role Phone Zachery Freire MD Unavailable [phone] Adalberto Luque DO Primary Care Provider [phone] Encounter Details Date Type Department Care Team (Late st Contact Info) Description 04/27/2020 Lab Requisition [facility] DermPath Lab [address] [facility] [place] [id number] [place] [address] Social History Tobacco Use Types Packs/Day Years [...] AM CDT) Case Report Dermatopathology Report Case: [id number] Authorizing Provider: Kg Herbert MD Collected: 04/26/2020 12:00 AM Ordering Location: [facility] DermPath Lab Received: 04/27/2020 11:34 AM Pathologist: Navi Buckner MD Specimens: A) - Skin, left lat orthodoxy B) - Skin, left lat elbow 0 2:07 PM CDT DERMATOPATHOLOGY LABORATORY Final Diagnosis Specimen A. SKIN, left lat orthodoxy: BASAL CELL CARCINOMA, NODULAR TYPE (C44.319) PIGMENTED SEBORRHEIC KERATOSIS (L82.1) (see microscopic description) Specimen B. SKIN, left lat elbow: BENIGN VERRUCOUS KERATOSIS (L82.1) 0 2:07 PM T DERMATOPATHOLOGY LABORATORY Clinical History A: R/O BCC. B: R/O BCC, SCC. 0 2:07 PM CDT DERMATOPATHOLOGY LABORATORY Gross Description Specimen A: Received is one formalin filled container labeled with the patient's name and designated left lat orthodoxy. The specimen consists of a shave biopsy measuring 61p3a6hb. Jar 0. Specimen B: Received is one formalin filled container labeled with the patient's name and designated left lat elbow. The specimen consists of a shave biopsy measuring 8x0s0lk. Jar 0. 0 2:07 PM CDT DERMATOPATHOLOGY LABORATORY Microscopic Description Specimen A. SKIN, left lat orthodoxy: Within the dermis there are aggregates of [...] characteristic determined by the Dermatopathology Laboratory at [facility], directed by Dr. Feliciano Buckner. These tests need not be, and therefore are not, approved by the [place] Food and Drug Administration. The tests are used for clinical purposes. Billing Codes Specimen Charges Stain Charges 11897 42540 1 1 0 2:07 PM CDT DERMATOPATHOLOGY LABORATORY Embedded Images 0 2:07 PM CDT DERMATOPATHOLOGY LABORATORY Pathology/Cytology TISSUE SPECIMEN FROM SKIN / Unknown 04/26/2020 04/27/2020 11:34 AM CDT Miscellaneous samples (specimen) TISSUE SPECIMEN FROM SKIN / Unknown 04/26/2020 04/27/2020 11:34 AM CDT Kg Herbert MD LAB - PATHOLOGY/CYTO LOGY ORDERABLES DERMATOPATHOLOGY LABORATORY [facility] - Department of Dermatology [address], [address] [phone] documented in this encounter Visit Diagnoses Not on filedocumented in this encounter Care Teams Facilities Plant Engineer Relationship Specialty Start Date End Date Adalberto Luque DO [address] [place] [address] PCP - General 04/10/18 [place] [address] [address] Orthopedic Surgery 03/16/13 documented as of this encounter
--- OUTSIDE RECORDS SUMMARY | 2024-10-14 20:06 | XMS_ITS | Encounter Summary ---
Author Organization [facility] Health Address [address] [place] [address] Care Team Providers Care Steamtable Worker Name Role Phone Zachery Freire MD Unavailable [phone] Adalberto Luque DO Primary Care Provider [phone] Encounter Details Date Type Department Care Team (Late st Contact Info) Description 06/09/2023 Lab Requisition [facility] - DermPath Lab [address] [facility] [place] [phone] Kg Herbert MD [address] [place] [address] Social History Tobacco Use Types Packs/Day Years [...] Comments DERMATOPATHOLOGY Routine 06/04/2023 12:0 0 AM MANAGER GRANT documented in this encounter Results * DERMATOPATHOLOGY (06/04/2023 12:00 AM MANAGER GRANT) Case Report Dermatopathology Report Case: [id number] Authorizing Provider: Kg Herbert MD Collected: 06/04/2023 12:00 AM Ordering Location: [facility] DermPath Lab Received: 06/09/2023 10:39 AM Pathologist: Navi Buckner MD Specimen: Skin, left side upper nose 3:57 PM MANAGER GRANT DERMATOPATHOLOGY LABORATORY Final Diagnosis Specimen A. SKIN, left side upper nose: BASAL CELL CARCINOMA, NODULAR TYPE (C44.311) 3:57 PM MANAGER GRANT DERMATOPATHOLOGY LABORATORY Clinical History R/O BCC, SCC 3:57 PM MANAGER GRANT DERMATOPATHOLOGY LABORATORY Gross Description Specimen A: Received is one formalin filled container labeled with the patient's name and designated left side upper nose. The specimen consists of a shave biopsy measuring 9x8x4 mm. Jar 0. 3:57 PM [facility] DERMATOPATHOLOGY LABORATORY Microscopic Description Specimen A. SKIN, left side upper nose: Within the dermis there are aggregates of basaloid cells with a high nuclear to cytoplasmic ratio and peripheral palisading. 3:57 PM MANAGER GRANT DERMATOPATHOLOGY LABORATORY Disclaimer An external and internal [...] purposes. Billing Codes Specimen Charges Stain Charges 21667 1 3:57 PM [facility] DERMATOPATHOLOGY LABORATORY Embedded Images 3:57 PM [facility] DERMATOPATHOLOGY LABORATORY Pathology/Cytolog y TISSUE SPECIMEN FROM SKIN / Unknown 06/04/2023 06/09/2023 10:39 AM [facility] Kg Herbert MD LAB - PATHOLOGY/CYTO LOGY ORDERABLES DERMATOPATHOLOGY LABORATORY [facility] - Department of Dermatology [address], [address] [phone] documented in this encounter Visit Diagnoses Not on filedocumented in this encounter Care Teams Steamtable Worker Relationship Specialty Start Date End Date Adalberto Luque DO [address] [place] [address] PCP - General 04/10/18 [place] [address] [place] [address] Orthopedic Surgery 03/16/13 documented as of this encounter
--- OUTSIDE RECORDS SUMMARY | 2024-10-14 20:06 | XMS_ITS | Encounter Summary ---
Author Organization [facility] Address [address] [facility] [place] [address] Care Team Providers Care Arborist Representative Name Role Phone Zachery Freire MD Unavailable [phone] Adalberto Luque DO Primary Care Provider [phone] Encounter Details Date Type Department Care Team (Late st Contact Info) Description 11/01/2021 Lab Requisition [facility] DermPath Lab [address] [facility] [place] [phone] Kg Herbert MD [address] [place] [address] Social History Tobacco Use Types Packs/Day Years [...] AM CDT) Case Report Dermatopathology Report Case: [id number] Authorizing Provider: Kg Herbert MD Collected: 10/31/2021 12:00 AM Ordering Location: [facility] DermPath Lab Received: 11/01/2021 01:40 PM Pathologist: [...] specimen consists of a shave biopsy measuring 9j0p0iz. Jar 0. Specimen B: Received is one formalin filled container labeled with the patient's name and designated right cheek. The specimen consists of a shave biopsy measuring 9p2o9fb. Jar 0. 1:15 PM CDT DERMATOPATHOLOGY LABORATORY [...] characteristic determined by the Dermatopathology Laboratory at [facility], directed by Dr. Feliciano Buckner. These tests need not be, and therefore are not, approved by the [place] Food and Drug Administration. The tests are used for clinical purposes. Billing Codes Specimen Charges Stain Charges [id number] 53786 1 1 1:15 PM CDT DERMATOPATHOLOGY LABORATORY Embedded Images 1:15 PM CDT DERMATOPATHOLOGY LABORATORY Pathology/Cytology TISSUE SPECIMEN FROM SKIN / Unknown 10/31/2021 11/01/2021 1:40 PM CDT Miscellaneous samples (specimen) TISSUE SPECIMEN FROM SKIN / Unknown 10/31/2021 11/01/2021 1:40 PM CDT Kg Herbert MD LAB - PATHOLOGY/CYTO LOGY ORDERABLES DERMATOPATHOLOGY LABORATORY [facility] - Department of Dermatology [facility] [address] [place] [address], [address] [phone] documented in this encounter Visit Diagnoses Not on filedocumented in this encounter Care Teams Arborist Representative Relationship Specialty Start Date End Date Adalberto Luque DO [address] [place] [address] PCP - General 04/10/18 [place] [address] [place] [address] Orthopedic Surgery 03/16/13 documented as of this encounter
--- OUTSIDE RECORDS SUMMARY | 2024-10-14 20:06 | XMS_ITS ---
Author Organization [facility] Address [address] [place] [address] Care Team Providers Care Chairman Ceo Name Role Phone Adalberto Luque DO Primary Care Provider [phone] Active Problems Problem Noted Date Diagnosed Date [...] (08/03/2021): Added automatically from request for surgery [id number] Personal history of other malignant neoplasm of [...]
--- OUTSIDE RECORDS SUMMARY | 2024-10-14 20:06 | XMS_ITS | Referral Summary ---
Author Organization [facility] Address [address] [place] [address] Care Team Providers Care Gandy Dancer Name Role Phone Adalberto Luque DO Primary Care Provider [phone] Allergies No known active allergies Medications cetirizine [...] (08/03/2021): Added automatically from request for surgery [id number] Personal history of other malignant neoplasm of [...] on file Legal Sex Male 2:12 AM CONTRACT NEGOTIATION MANAGER Gender Identity Not on file Sexual Orientation Not on file Last Filed Vital Signs Vital Sign Reading Time Taken Comments Blood Pressure 141/65 09/13/2021 9:45 AM CONTRACT NEGOTIATION MANAGER Pulse 71 09/13/2021 9:45 AM CONTRACT NEGOTIATION MANAGER Temperature 36.7 C (98 F) 09/13/2021 9:45 AM CONTRACT NEGOTIATION MANAGER Respiratory Rate 18 09/13/2021 9:45 AM CONTRACT NEGOTIATION MANAGER Oxygen Saturation 91% 09/13/2021 9:45 AM CONTRACT NEGOTIATION MANAGER Inhaled Oxygen Concentration - - Weight 77.1 kg (170 lb) 01/23/2022 9:47 AM CDT Height 175.3 cm (5' 9 ) 01/23/2022 9:47 AM CDT Body Mass Index 25.1 01/23/2022 9:47 AM CDT Plan of Treatment Not on file Medical Devices Implanted Type Area Wood Gluer Device Identifier Shelf Expiration Date Model / Serial / Lot T[employer]ier Inc [id number] Aequalis Perform Reversed Od5 Mm L46 Mm Peripheral Glenoid Screw Baseplate Nonsterile - [id number] - [id number] Implanted:Qty: 1 on 09/12/2021 by Gerardo Elizabeth MD at [facility] Screw Right: Shoulder [employer] [id number] / [id number] / Nelson Knees Knee T[employer]ier Inc Skp128 Tornier Aequalis Perform 15mm Press Fit Long Post Shoulder - [id number] - [id number] Implanted:Qty: 1 on 09/12/2021 by Gerardo Elizabeth MD at [facility] Right: Shoulder [employer] 08/10/2026 [id number] / [id number] / Tornier Inc [id number] Od25 Mm Full Wedge Augment Shoulder 15 D Baseplate Glenoid - [id number] - [id number] Implanted:Qty: 1 on 09/12/2021 by Gerardo Elizabeth MD at [facility] Right: Shoulder [employer] Inc [id number] 06/05/2026 [id number] / [id number] / Tornier Inc [id number] Tornier Aequalis Perform 36mm Reverse Shoulder Standard Sphere - [id number] - [id number] Implanted:Qty: 1 on 09/12/2021 by Gerardo Elizabeth MD at [facility] Right: Shoulder [employer] 07/25/2026 AKF912 / [id number] / Tornier Inc [id number] Aequalis Perform Reversed 5mm 30mm Peripheral Glenoid Screw - [id number] - [id number] Implanted:Qty: 1 on 09/12/2021 by Gerardo Elizabeth MD at [facility] Right: Shoulder [employer] BLB725 / [id number] / [employer] [id number] Insert Perform 10 Deg [id number] - [id number] - [id number] Implanted:Qty: 1 on 09/12/2021 by Gerardo Elizabeth MD at [facility] Right: Shoulder [employer] Inc 03/01/2026 [id number] / [id number] / [employer] Inc Dwx3ps Stem Perform Sz 3 Plus Humeral - [id number] Implanted:Qty: 1 on 09/12/2021 by Gerardo Elizabeth MD at [facility] Right: Shoulder [employer] Inc 03/01/2026 DWX3PS / / Insurance MEDICARE AETNA SENIOR SUPPLEMENT MEDICARE AET Advance Directives For more information, please contact: [phone] Documents on File Type Date Recorded Patient Freight Delivery Driver Expl anation ADVANCE DIRECTIVE 11/27/2012 12:00 AM ELISABETH RAMIREZ ADVANCE DIRECTIVE 11/27/2012 12:00 AM POWER OF TECHNICAL SUPPORT REPRESENTATIVE FINANCIAL/MEDICAL * Full Code (Latest Code Status on File) Date Activated Date Inactivated Comments 09/12/2021 11:50 AM 09/13/2021 2:56 PM Care Teams Gandy Dancer Relationship Specialty Start Date End Date Adalberto Luque DO PCP - General Internal Medicine 11/26/18
[2024-10-14 21:11] VITALS: BP 164/92; PULSE 73; RESP 15; O2SAT 100
== END 2024-10-14 21:12 | disposition home or self-care (01) ==
PROVIDERS: Emergency Provider Emergency Medicine; PCP Nurse Practitioner Family
DX: S61.411A Laceration without foreign body of right hand, initial encounter (principal); S00.511A Abrasion of lip, initial encounter; S00.211A Abrasion of right eyelid and periocular area, initial encounter; W18.30XA Fall on same level, unspecified, initial encounter; I10 Essential (primary) hypertension; E78.00 Pure hypercholesterolemia, unspecified; Z87.891 Personal history of nicotine dependence
CPT/HCPCS: 12001; 70450; 70486; 72125; 73130; 99284

== ENCOUNTER 2024-12-09 11:01 | Outpatient (CLI) | payer MEDICARE, SELFPAY ==
--- NOTE | ~2024-12-09 | XR_ITS ---
Lumbosacral Spine: AP and lateral views Clinical History: Pain COMPARISON: 12/12/2022 Findings: The normal lordotic curve is maintained. No fracture evident. There is 11 mm retrolisthesis of L3 over L4. There is moderate to advanced degenerative disc narrowing at L3-L4. There are extensi ve anterior bridging osteophytes of the visualized lumbar spine, compatible with DISH. There is sever e facet arthropathy, especially from L3 through S1.. The sacroiliac joints are normally outlined. Impression: Severe degenerative spondylosis, as above. 11 mm retrolisthesis of L3 over L4. DISH. Reviewed, dictated and finalized at location M. Impression: Severe degenerative spondylosis, as above. 11 mm retrolisthesis of L3 over L4. DISH.
== END 2024-12-09 11:02 | disposition home or self-care (01) ==
PROVIDERS: PCP Nurse Practitioner Family; Visit Provider Nurse Practitioner Family
DX: M43.16 Spondylolisthesis, lumbar region (principal); M47.816 Spondylosis without myelopathy or radiculopathy, lumbar region; M48.16 Ankylosing hyperostosis [Forestier], lumbar region
CPT/HCPCS: 72100